=== PATIENT | female | born 1945 | race Caucasian/White ===

== ENCOUNTER 2017-02-19 14:15 | Inpatient (IN) | payer MEDICARE ==
[2017-02-19] MEDS ORDERED: Ondansetron HCl/PF 4 MG/2 ML Vial ONE ×2 (14:58→15:52)
[2017-02-19 15:05] LABS: #Lymphocytes 0.6 thou/uL (1.20-3.40); #Monocytes 0.4 thou/uL (0.11-0.59); #Neutrophils 7.1 thou/uL (1.40-6.50); %Basophils 0.2 % (0.0-1.0); %Eosinophils 0.2 % (0.0-10.0); %Lymphocytes 7.8 % (21.0-51.0); %Monocytes 4.3 % (0.0-10.0); %Neutrophils 87.6 % (42.0-75.0); Hemoglobin 9.2 g/dL (12.0-16.0); Mean Corpuscular HGB CONC 31.4 g/dL (32.0-36.0); Mean Corpuscular Hemoglobin 29.6 pg (27.0-31.0); Mean Platelet Volume 6.9 fL (7.4-10.4); Platelet Count 326 thou/uL (130-400); RBC Distribution Width 13.2 % (11.5-14.5); Red Blood Cell (RBC) Count 3.12 mill/uL (4.20-5.40); White Blood Cell (WBC) Count 8.1 thou/uL (4.8-10.8)
[2017-02-19 15:18] LABS: ALT (SGPT) 16 U/L (8-55); AST (SGOT) 21 U/L (5-34); Albumin 3.8 g/dL (3.4-4.8); Alkaline Phosphatase 104 U/L (40-150); Anion Gap 16 mmol/L (10-20); BUN (Urea Nitrogen) 22 mg/dL (9.8-20.1); Bilirubin, Total 0.2 mg/dL (0.2-1.2); Calc. Creatinine Clearance 0 mL/min (70-130); Calcium 10.2 mg/dL (7.8-10.44); Carbon Dioxide 25 mmol/L (23-31); Chloride 99 mmol/L (98-107); Estimated GFR-MDRD 54; Globulin 4.3 g/dL (2.4-3.5); Glucose 172 mg/dL (83-110); Lipase 248 U/L (8-78); Potassium 3.6 mmol/L (3.5-5.1); Protein, Total 8.1 g/dL (6.0-8.3); Sodium 136 mmol/L (136-145)
[2017-02-19 15:22] LABS: CKMB 1.2 ng/mL (0-6.6); Troponin I 0.121 ng/mL (< 0.028)
--- NOTE | 2017-02-19 15:53 | CT ---
CT OF THE ABDOMEN AND PELVIS 02/19/17 COMPARISON: 03/08/15 HISTORY: Sudden onset nausea and vomiting. TECHNIQUE: Serial axial CT imaging at 5 mm intervals from lung bases through pubic symphysis without contrast. C oronal reformatted imaging obtained. FINDINGS: The lack of contrast media limits assessment of the viscera, bowel, vascular structures and for lymph adenopathy. Patchy areas of reticulonodular density are noted in both lung bases, left greater than right, new wh en compared to the prior exam. No free intraperitoneal air is noted. 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 There are numerous round soft tissue nodules in the right upper quadrant, evid ence of stable splenosis. The liver appears grossly unremarkable as do bilateral adrenal glands. Pancreas is grossly unremarkab le as well. The left kidney contains a few punctate nonobstructing stones, unchanged when compared to the prior e xamination. There are also calcifications in the left renal hilum suggesting vascular calcification. There is no evidence for obstructive uropathy on the left. There is prominent new hydronephrosis and hydroureter on the right. Mid right ureter is dilated to 2. 4 cm. There is a large obstructing stone in the distal right ureter at the axial level of the inferio r margin of the right sacroiliac joint, measuring 1.2 cm in transverse dimension. This was located wi thin the renal pelvis on the 03/08/15 exam. Limited assessment of the bowel demonstrates no evidence for obstruction. There is azygos continuatio n of the IVC, as seen on the prior examination. Prominent stable mid pole anterior right renal cyst. Extensive atherosclerotic calcification of the abdominal aorta and its branches noted, not well aicha cterized on noncontrast enhanced imaging. There is postoperative hardware associated with the proxima l right femur. No acute osseous abnormality is seen. multilevel lumbar spine degenerative changes with multilevel di sc space narrowing and facet hypertrophic change. The obstructing stone within the distal right ureter measures up to 1.4 cm in craniocaudal dimension. IMPRESSION: There is evidence of severe obstructive uropathy on the right secondary to an obstructing stone withi n the right ureter measuring up to 1.4 cm in craniocaudal dimension. Numerous additional stable inci dental findings as detailed above. POS: [facility]
[2017-02-19 16:03] LABS: Bilirubin Negative (Negative); Blood, Urine Small (Negative); Clarity CLEAR (Clear); Glucose, Urine (Dipstick) Negative (Negative); Leukocyte Negative (Negative); Nitrite Negative (Negative); Protein, Urine (Dipstick) 100 mg/dL (Neg-Trace); Specific Gravity, Urine 1.013 (1.002-1.036); Urobilinogen 0.2 mg/dL (0.2-1.0); pH, Urine 7.5 (5.0-9.0)
[2017-02-19 16:05] LABS: Bacteria/HPF None Seen HPF (None Seen); Hyaline Casts/LPF 0-3 HYALINE CAST LPF (0-3 Hyaline); Squamous Epithelial None Seen HPF (0-3); WBC/HPF 0-3 HPF (0-3)
--- NOTE | 2017-02-19 16:24 | RAD ---
FRONTAL RADIOGRAPH CHEST PORTABLE UPRIGHT 02/19/17 COMPARISON: 03/08/15. HISTORY: Short of breath. FINDINGS: There are new hazy patchy areas of increased density within the inferomedial aspect of the left lung base abutting the left hemidiaphragm. There are increased linear interstitial densities with pulmonar y hyperinflation. The osseous structures are demineralized. There are postoperative anchors overlying the humeral head on the right. There is atherosclerotic calcifications in the aortic arch. IMPRESSION: Patchy areas of focal opacity noted in the medial left lung base suggesting infectious pneumonitis or aspiration. POS: [facility]
[2017-02-19] MEDS ORDERED: Mag-Al 1200 mg/1200 mg/30 ML UDCUP PO PRN (17:10)
[2017-02-19] MEDS ORDERED: Pepto Bismol Chew TAB PO PRN (17:10)
[2017-02-19] MEDS ORDERED: Calcium Carbonate 500 MG ChewTAB PO PRN (17:10)
[2017-02-19] MEDS ORDERED: Loperamide HCl 2 MG CAP PO PRN (17:10)
[2017-02-19] MEDS ORDERED: Bisacodyl 5 MG TAB PO PRN (17:10)
[2017-02-19] MEDS ORDERED: HumaLOG 300 UNITS/3 ML VIAL SC PRN (17:15)
[2017-02-19] MEDS ORDERED: Dextrose 5% in Water 1,000 ML IV PRN (17:15)
[2017-02-19] MEDS ORDERED: Dextrose 50% Abboject 50 ML SYRINGE SLOW IVP PRN (17:15)
[2017-02-19 17:36] LABS: Hemoglobin A1c 6.1 % (4.0-6.0)
[2017-02-19 18:03] LABS: Troponin I 0.116 ng/mL (< 0.028)
[2017-02-19] MEDS: Sodium Chloride 0.9% 1,000 ML IV SCH (21:34)
[2017-02-19] MEDS: Famotidine 20 MG TAB PO SCH (21:36)
[2017-02-19] MEDS: Piperacillin/Tazobactam 3.375 GM in Sodium Chloride 0.9% 100 ML IVPB SCH (21:36)
--- NOTE | 2017-02-19 23:26 | HP ---
CHIEF COMPLAINT: Nausea and vomiting since earlier this morning. HISTORY OF PRESENT ILLNESS: This is a 71-year-old female with no significant past medical history wh diana presents to the hospital after nausea and vomiting episode that occurred earlier this morning. The patient states that she took a new p.o. that was prescribed by her doctor, which she says is a "jennifer ry" pill. She states that after taking that particular medication, she felt like her stomach was uns ettling. Shortly thereafter, she began having nausea and vomiting that persisted for a while. She s tates that she pretty much vomited everything that she had in her stomach, to the point where she was dry heaving shortly thereafter. Because of that, she decided to come to the hospital for further ev aluation and management. She denied having any chest pain, shortness of breath, dizziness, chills, f valery, palpitations or any other symptoms. She states that this is approximately her third day of ta jessica this medication. She states that on the past couple of days, she has been having some watery di arrhea with an unsettling stomach, but did not have the vomiting until today. She states that she lopez s not had any diarrhea today. Currently, the patient states that she feels significantly better. Scottie coronado denies any nausea, vomiting or diarrhea at this time. She also denies any fevers or chills or dizz iness. While in the ER, the patient was found to have a troponin of indeterminate range for a tropon in of 0.121 with nonspecific findings on the EKG. PAST MEDICAL HISTORY: Includes hyperlipidemia and diabetes, although she states she was told that scottie coronado no longer has it. PAST SURGICAL HISTORY: None. FAMILY HISTORY: She does not know as she states that she is adopted. SOCIAL HISTORY: The patient denies any tobacco or recreational drug use or alcoholic use. REVIEW OF SYSTEMS: A 14-point review of systems were reviewed and were negative other than what was mentioned in the HPI. HOME MEDICATIONS: Still trying to be retrieved at this time. PHYSICAL EXAMINATION: VITAL SIGNS: Blood pressure is 168/80, pulse was 74, respiratory rate was 18, temperature was 98.7. The patient is satting 97% oxygen on room air. GENERAL: The patient was in no apparent distress, resting comfortably in the bed. Alert, awake and oriented x3. HEAD: Normocephalic and atraumatic. EYES: Pupils are round and reactive to light. Extraocular muscles were intact. Conjunctivae were p ink. Sclerae were nonicteric. MOUTH: Oral mucosa is pink and moist. No erythematous was noted. NECK: Soft and supple. No JVD, carotid bruits or lymphadenopathy. CARDIOVASCULAR: Regular rate and rhythm. S1 and S2 sounds were heard. No S3, no S4, or murmurs. RESPIRATORY: Clear to auscultation bilaterally. No added sounds. ABDOMEN: Bowel sounds, soft, nontender and nondistended. EXTREMITIES: Pulses were 2+, both dorsalis and radial pulse. No pitting edema could be appreciated. LABORATORY DATA: White blood cell count was 8.1, hemoglobin was 9.2, hematocrit was 29.4 and platele t count was 226. Sodium was 136, potassium 3.6, chloride was 99, bicarbonate was 25, BUN was 22, cre atinine was 0.01, glucose is 172 and troponin was 0.121. The patient also had a lipase of 248. Urin alysis was practically negative for any acute abnormalities that could be explaining her current symp toms. IMAGING DATA: Chest x-ray showed patchy areas of focal opacity noted in the medial left lung base de guzman ggestive of an infectious pneumonitis or aspiration. CT scan of the abdomen showed evidence of sever e obstructive uropathy on the right secondary to obstructive stone with right ureter measuring up to 1.4 cm in dimension. ASSESSMENT AND PLAN: 1. Nausea and vomiting, likely secondary iatrogenic secondary to medication use. The patient feels significantly better. She is currently hemodynamically stable. We will continue to treat her sympto matically if symptoms do reoccur with Zofran. We will also start the patient on IV fluids. 2. Elevated troponins, likely secondary to above. I do not believe this is cardiac in nature. I do not believe this is cardiac in nature; however, we will check 2 more sets of troponins to rule out a s it being cardiac in nature. Again, I do not believe this is cardiac at this time. 3. Aspiration/pneumonitis due to persistent nausea and vomiting from earlier today. The patient cur rently is hemodynamically stable and is satting well on room air. Due to the significance of her vom iting and findings on her chest x-ray, I will place her on IV antibiotics for the time being to make sure that this does not turn into a significant pneumonia in the near future. 4. Elevated lipase, likely secondary to the retching and vomiting that she has. She currently has n o abdominal pain and is asymptomatic on exam. Therefore, true pancreatitis is unlikely at this time. 5. Questionable diabetes. Apparently, was on metformin, but this was stopped by her primary care ph ysician. Glucose is 172 at this time. We will check a hemoglobin A1c. I will place the patient on diabetic diet just in case the patient still does have diabetes. 6. Hyperlipidemia. Resume home medications. 7. Deep venous thrombosis prophylaxis. We will place sequential compression devices as well as star t the patient on Lovenox daily.
[2017-02-20] MEDS: Piperacillin/Tazobactam 3.375 GM in Sodium Chloride 0.9% 100 ML IVPB SCH ×4 (02:07→21:24)
[2017-02-20] MEDS: Sodium Chloride 0.9% 1,000 ML IV SCH ×3 (02:12→21:30)
[2017-02-20 05:18] LABS: #Monocytes 0.7 thou/uL (0.11-0.59); #Neutrophils 5.8 thou/uL (1.40-6.50); %Basophils 0.3 % (0.0-1.0); %Eosinophils 0.6 % (0.0-10.0); %Lymphocytes 13.3 % (21.0-51.0); %Monocytes 9.8 % (0.0-10.0); Hemoglobin 8.4 g/dL (12.0-16.0); Mean Corpuscular HGB CONC 31.5 g/dL (32.0-36.0); Mean Corpuscular Hemoglobin 29.7 pg (27.0-31.0); Mean Corpuscular Volume 94.2 fl (81.0-99.0); Mean Platelet Volume 6.8 fL (7.4-10.4); Platelet Count 279 thou/uL (130-400); RBC Distribution Width 13.2 % (11.5-14.5); Red Blood Cell (RBC) Count 2.82 mill/uL (4.20-5.40); White Blood Cell (WBC) Count 7.6 thou/uL (4.8-10.8)
[2017-02-20 05:42] LABS: ALT (SGPT) 18 U/L (8-55); AST (SGOT) 25 U/L (5-34); Albumin 3.4 g/dL (3.4-4.8); Alkaline Phosphatase 94 U/L (40-150); Anion Gap 13 mmol/L (10-20); BUN (Urea Nitrogen) 18 mg/dL (9.8-20.1); Bilirubin, Total 0.2 mg/dL (0.2-1.2); Calc. Creatinine Clearance 41 mL/min (70-130); Calcium 9.3 mg/dL (7.8-10.44); Carbon Dioxide 25 mmol/L (23-31); Chloride 106 mmol/L (98-107); Estimated GFR-MDRD 58; Globulin 3.4 g/dL (2.4-3.5); Glucose 93 mg/dL (83-110); Potassium 3.5 mmol/L (3.5-5.1); Protein, Total 6.8 g/dL (6.0-8.3); Sodium 140 mmol/L (136-145)
[2017-02-20] MEDS: Enoxaparin Sodium 40 MG/0.4 ML SYRINGE SC SCH (09:02)
[2017-02-20] MEDS: Famotidine 20 MG TAB PO SCH ×2 (09:02→21:24)
[2017-02-20] MEDS ORDERED: Promethazine HCl 25 MG SUPP PR PRN (09:42)
[2017-02-20] MEDS ORDERED: hydrALAZINE 20 MG/ML VIAL SLOW IVP PRN (09:42)
[2017-02-20] MEDS ORDERED: Temazepam 15 MG CAP PO PRN (09:42)
[2017-02-20] MEDS ORDERED: Ondansetron HCl/PF 4 MG/2 ML Vial IVP PRN (09:42)
--- NOTE | 2017-02-20 09:50 | PDOC.PN ---
- Subjective Encounter Start Date: 02/20/17 Encounter Start Time: 09:48 Patient seen and examined. No new complaints. No overnight events - Objective Resuscitation Status: Resuscitation Status FULL:Full Resuscitation MAR Reviewed: Yes Vital Signs & Weight: Vital Signs (12 hours) Temp Pulse Resp BP Pulse Ox 02/20/17 04:20 93 L 02/20/17 03:57 98.2 F 71 18 122/59 L 93 L 02/20/17 00:16 93 L 02/20/17 00:00 98.1 F 73 18 131/60 93 L Weight Weight 107 lb 9.6 oz I&O: 02/19/17 02/20/17 02/21/17 06:59 06:59 06:59 Intake Total 1027 Output Total 850 Balance 177 Result Diagrams: 02/20/17 05:01 02/20/17 05:01 Additional Labs: Accuchecks 02/20/17 02/19/17 06:06 20:48 POC Glucose 93 127 H Phys Exam - Physical Examination Constitutional: NAD HEENT: PERRLA Neck: no JVD Respiratory: no wheezing Cardiovascular: no significant murmur Gastrointestinal: non-tender Musculoskeletal: pulses present Neurological: moves all 4 limbs Psychiatric: A&O x 3 Dx/Plan (1) Nausea & vomiting Code(s): R11.2 - NAUSEA WITH VOMITING, UNSPECIFIED Status: Acute (2) Aspiration pneumonitis Code(s): J69.0 - PNEUMONITIS DUE TO INHALATION OF FOOD AND VOMIT Status: Acute (3) DM type 2 (diabetes mellitus, type 2) Status: Chronic (4) Depression Code(s): F32.9 - MAJOR DEPRESSIVE DISORDER, SINGLE EPISODE, UNSPECIFIED Status : Chronic (5) HLD (hyperlipidemia) Code(s): E78.5 - HYPERLIPIDEMIA, UNSPECIFIED Status: Chronic (6) Renal calculi Status: Chronic (7) Elevated troponin Code(s): R74.8 - ABNORMAL LEVELS OF OTHER SERUM ENZYMES Status: Acute - Plan * feels better * continue current rx * f/u urology plan * f/u lipase * f/u card plan
[2017-02-20 13:47] VITALS: BMI 16.3
--- NOTE | 2017-02-20 14:24 | CON ---
UROLOGY CONSULTATION NOTE DATE OF CONSULTATION: 02/20/2017 HISTORY OF PRESENT ILLNESS: This is a 71-year-old white female whom I was asked to see today because of a large right distal ureteral stone with right hydronephrosis. She was admitted to the hospital yesterday. She came in with nausea and vomiting, which she related to starting a new medicine that w as probably for perhaps early Alzheimer disease that her family doctor in [place] has started on, alth ough she was also started on a diuretic around the same time. She took both of those medicines on and did not feel well and then took just a pill for assuming Alzheimer's yesterday and as when the vomiting started and she came in. She seems to be doing better now, although she is on medicati ons for nausea currently. She has a fairly long history of kidney stones. She lived in [facility] in the past and she can remember having stones there and taking medicine for them and passing them. She is not sure what the stones were made of. Looking through the records here at the hospital, in 2013, she had a 5 mm distal stone on the right as well as a 1 cm right renal pelvic stone in the ER a nd she had been referred to Dr. Khari Lopez. She does not believe she saw a urologist at that time, but does remember passing that stone. She had a CAT scan done a couple years ago that showed bilater al renal stones with a very large one in the right renal pelvis and then she [facility] this visit when she came in that shows that she has a 1.5 cm stone that had been in the renal pelv is on prior scans that is now in the lower third of the right ureter with a very prominent and hydron ephrotic right ureter. The renal cortex seems to be well maintained. She appears to have a large cy st coming off of the right kidney. Also, she had some stones in the left side. She also of note has situs inversus. She has had gross hematuria with stones in the past, but she has had no gross hemat uria recently. No fevers or chills. No right flank pain or abdominal pain at all and no blood in urine or dysuria. PAST SURGICAL HISTORY: Includes a hysterectomy for benign disease, a cholecystectomy and appendectom y, bilateral elbow surgery, femur fracture and some procedures done on her toe. To her knowledge, scottie coronado has never had a joint replacement. PAST MEDICAL HISTORY: She does have a history possibly of diabetes, although recently her family doc tor told she does not have diabetes and took her off of the medications for that. She has had a hist ory of some hyperlipidemia. She has had some history of lower extremity edema and she did start taki ng a fluid pill for that. She does not have any significant edema now. She does have some problems with the memory, even though she has a diagnosis of Alzheimer's. Now, she also has a long history of anemia. She said as a child, she was anemic and throughout her life, she has been anemic and she st ill is anemic and it is uncertain what that is caused from and most recently over the last few months she has had decreasing appetite and she has lost probably 20-30 pounds because of this. She also lopez s a history of COPD. She does not smoke anymore. SOCIAL HISTORY: Does not smoke at this time. She does not drink alcohol at this time. I believe scottie coronado lives by herself. PHYSICAL EXAMINATION: ABDOMEN: She has no flank tenderness. Abdomen is soft, flat and nontender, without mass. GENITOURINARY: No inguinal adenopathy, no abnormality. External genitalia. IMPRESSION AND PLAN: A large right distal ureteral stone with hydronephrosis. This has probably bee n there for a while. Based on the amount of hydronephrosis, thankfully, she is pain free and has nor mal creatinine and basically normal urinalysis. I think she does need to have this treated. I doubt very much that she will pass it. My guess has been there for a while and they do not think a trial with trying to pass, it is much sense. We could look at treating her with shockwave lithotripsy and stent placement this Wednesday when the unit is in town and I think this will be an ideal time to do it as long as she can stay off blood thinners between now and then. I am going to write on her chart that if it is okay with her Hospitalist that any for cardiac workup, which I think is being done at this time is adequate, then we could look at keeping her off her aspirin and doing this Wednesday. I f not, we probably do it a week from Wednesday. I did tell her based on the size of the stone that i t may very well require more than 1 treatment, which possibly consistent of ESWL and stent followed b y another ESWL procedure, perhaps ESWL and a stent followed by ureteroscopic procedure. In any event , I did tell her that currently her kidney appears to be well maintained, which is a good finding. I will follow along with you.
--- NOTE | 2017-02-20 15:12 | RAD ---
ABDOMEN 1 VIEW: Date: 02/20/17 HISTORY: 71-year-old female with history of right ureteral stone. COMPARISON: 02/19/17 CT. FINDINGS: There is a large, 1.1 x 1.5 cm diameter right ureteral calculus in the same position as on the prior CT scan. There is noted to be a left-sided liver and a right-sided stomach consistent with abdominal visceral situs inversus. IMPRESSION: Large right ureteral calculus distally, stable. Evidence for right-sided stomach and left-sided liver . POS: [facility]
[2017-02-21] MEDS: Piperacillin/Tazobactam 3.375 GM in Sodium Chloride 0.9% 100 ML IVPB SCH ×4 (02:30→20:46)
[2017-02-21] MEDS: Acetaminophen 325 MG TAB PO PRN ×2 (04:48→17:21)
[2017-02-21] MEDS ORDERED: Ketorolac Tromethamine 30 MG/ML VIAL IVP SCH (05:00)
[2017-02-21 05:30] LABS: Albumin 3.4 g/dL (3.4-4.8); Anion Gap 11 mmol/L (10-20); BUN (Urea Nitrogen) 17 mg/dL (9.8-20.1); BUN/Creatinine Ratio 15.18; Calc. Creatinine Clearance 34 mL/min (70-130); Calcium 9.2 mg/dL (7.8-10.44); Carbon Dioxide 26 mmol/L (23-31); Chloride 107 mmol/L (98-107); Estimated GFR-MDRD 48; Glucose 100 mg/dL (83-110); Lipase 36 U/L (8-78); Phosphorus 2.7 mg/dL (2.3-4.7); Potassium 3.5 mmol/L (3.5-5.1); Sodium 140 mmol/L (136-145)
[2017-02-21 05:49] LABS: Band 1 % (5-11); Eosinophils 1 % (0-10); Hemoglobin 8.3 g/dL (12.0-16.0); Hypochromia SLIGHT = 6-15 cells (100X) (0-5/hpf); Lymphocytes 8 % (21-51); MDiff Complete? YES; Mean Corpuscular HGB CONC 31.2 g/dL (32.0-36.0); Mean Corpuscular Hemoglobin 29.5 pg (27.0-31.0); Mean Corpuscular Volume 94.5 fl (81.0-99.0); Metamyelocyte 1 % (0-0); Monocytes 6 % (0-10); Neutrophil 83 % (42-75); PLT Morphology Comment Appears Adequate; Platelet Count 274 thou/uL (130-400); RBC Distribution Width 13.4 % (11.5-14.5); White Blood Cell (WBC) Count 9.5 thou/uL (4.8-10.8)
[2017-02-21] MEDS: Famotidine 20 MG TAB PO SCH ×2 (08:14→20:47)
[2017-02-21] MEDS: Enoxaparin Sodium 40 MG/0.4 ML SYRINGE SC SCH ×2 (08:14→08:21)
[2017-02-21] MEDS: Sodium Chloride 0.9% 1,000 ML IV SCH ×2 (08:15→20:47)
--- NOTE | 2017-02-21 11:57 | RAD ---
2 VIEWS CHEST: Date: 02/21/17 COMPARISON: 02/19/17. HISTORY: Shortness of breath. FINDINGS: Diffuse increased linear interstitial densities are noted with pulmonary hyperinflation. There is asy mmetric linear density in the medial left lung base, slightly improved when compared to 02/19/17, whi ch may signify improving infectious pneumonitis. Lungs are hyperinflated, consistent with air trappin g. IMPRESSION: Diffuse interstitial prominence with pulmonary hyperinflation, which may signify findings consistent with COPD. Streaky opacity in the medial left lung base suggests superimposed infectious pneumonitis, improving. Continued follow-up to full resolution advised. POS: [facility]
--- NOTE | 2017-02-21 12:28 | PDOC.PN ---
- Subjective Encounter Start Date: 02/21/17 Encounter Start Time: 12:22 Patient seen and examined. No new complaints. No overnight events - Objective Resuscitation Status: Resuscitation Status FULL:Full Resuscitation MAR Reviewed: Yes Vital Signs & Weight: Vital Signs (12 hours) Temp Pulse Resp BP Pulse Ox 02/21/17 12:00 99.2 F 75 14 121/55 L 93 L 02/21/17 10:28 98.8 F 70 16 126/65 94 L 02/21/17 08:10 98.8 F 70 16 94 L 02/21/17 04:48 93 L 02/21/17 04:00 98.9 F 73 18 156/72 H 93 L Weight Admit Weight 107 lb Weight 108 lb 14.4 oz I&O: 02/20/17 02/21/17 02/22/17 06:59 06:59 06:59 Intake Total 1027 2000 Output Total 850 2650 Balance 177 -650 Result Diagrams: 02/21/17 04:43 02/21/17 04:43 Additional Labs: Accuchecks 02/21/17 02/21/17 02/20/17 11:08 06:07 21:11 POC Glucose 142 H 91 119 H 02/20/17 17:00 POC Glucose 143 H Phys Exam - Physical Examination Constitutional: NAD HEENT: PERRLA Neck: no JVD Respiratory: no wheezing Cardiovascular: no significant murmur Gastrointestinal: non-tender Musculoskeletal: pulses present Neurological: normal sensation Psychiatric: A&O x 3 Dx/Plan (1) Nausea & vomiting Code(s): R11.2 - NAUSEA WITH VOMITING, UNSPECIFIED Status: Acute (2) Aspiration pneumonitis Code(s): J69.0 - PNEUMONITIS DUE TO INHALATION OF FOOD AND VOMIT Status: Acute (3) DM type 2 (diabetes mellitus, type 2) Status: Chronic (4) Depression Code(s): F32.9 - MAJOR DEPRESSIVE DISORDER, SINGLE EPISODE, UNSPECIFIED Status : Chronic (5) HLD (hyperlipidemia) Code(s): E78.5 - HYPERLIPIDEMIA, UNSPECIFIED Status: Chronic (6) Renal calculi Status: Chronic (7) Elevated troponin Code(s): R74.8 - ABNORMAL LEVELS OF OTHER SERUM ENZYMES Status: Acute - Plan * awaiting card plan * f/u urology plan * continue current mx
--- NOTE | 2017-02-21 15:26 | CON ---
DATE OF CONSULTATION: 02/21/2017 REASON FOR CONSULTATION: Elevated troponin. HISTORY OF PRESENT ILLNESS: Ms. Varela is a 71-year-old woman with no previous cardiac history wh o recently was admitted for persistent nausea, vomiting. She is very vague in her history. She tg es flank pain. She was diagnosed with pyelonephritis. No chest pain or pressure noted. Her troponi n was in the indeterminate range. PAST MEDICAL HISTORY: Nephrolithiasis, hysterectomy, elbow surgery, cholecystectomy, mild Alzheimer' s dementia, and diabetes mellitus. SOCIAL HISTORY: No current tobacco or alcohol use. HOME MEDICATIONS: Zocor, trazodone, Lasix, and pioglitazone. REVIEW OF SYSTEMS: Ten-point review of systems is reviewed and as above, otherwise negative. PHYSICAL EXAMINATION: GENERAL: Patient is a pleasant female who is in no acute distress. The patient appears her stated a ge. VITAL SIGNS: Blood pressure 120/55, pulse 75, temperature 99.2. NEUROLOGIC: The patient is alert and oriented times 3 with no focal neurologic deficits. HEENT: Sclerae without icterus. Mouth has moist mucous membranes with normal pallor. NECK: No JVD. Carotid upstroke brisk. No bruits bilaterally. LUNGS: Clear to auscultation with unlabored respirations. BACK: No scoliosis or kyphosis. CARDIAC: Regular rate and rhythm with normal S1 and S2. No S3 or S4 noted. No significant rubs, mu rmurs, thrills, or gallops noted throughout the precordium. PMI is not displaced. There is no pasha ternal heave. ABDOMEN: Soft, nontender, nondistended. No peritoneal signs present. No hepatosplenomegaly. No ab normal striae. EXTREMITIES: 2+ femoral and 2+ dorsalis pedis pulses. No cyanosis, clubbing, or edema. SKIN: No gross abnormalities. PERTINENT LABORATORY DATA: Hemoglobin 8.3, creatinine 1.12 with a GFR of 48. Peak troponin 0.110. IMPRESSION: 1. Elevated troponin. 2. Nausea, vomiting. 3. Pyelonephritis. RECOMMENDATIONS: Ms. Varela's symptoms are not felt to be consistent with unstable angina. This is likely demand ischemia. Her hemoglobin has decreased. She also has had persistent nausea and vom iting, likely from pyelonephritis. At this point, I recommend conservative therapy. We will add bet a melani therapy to her statin treatment. She is not currently having symptoms of angina. I would not recommend nitrates.
[2017-02-21 19:44] LABS: Bilirubin Negative (Negative); Blood, Urine Small (Negative); Clarity CLEAR (Clear); Glucose, Urine (Dipstick) Negative (Negative); Leukocyte Small (Negative); Nitrite Negative (Negative); Protein, Urine (Dipstick) 30 mg/dL (Neg-Trace); Specific Gravity, Urine 1.028 (1.002-1.036); Urobilinogen 0.2 mg/dL (0.2-1.0)
[2017-02-21 19:46] LABS: Bacteria/HPF None Seen HPF (None Seen); Hyaline Casts/LPF 0-3 HYALINE CAST LPF (0-3 Hyaline); Pathc Cast-AUWi Flag 0.27 (0-2.49); Squamous Epithelial 0-3 HPF (0-3)
[2017-02-21] MEDS: Carvedilol 3.125 MG TAB PO SCH (20:47)
[2017-02-22] MEDS: Piperacillin/Tazobactam 3.375 GM in Sodium Chloride 0.9% 100 ML IVPB SCH ×4 (02:28→20:38)
[2017-02-22 05:03] LABS: Albumin 3.4 g/dL (3.4-4.8); Anion Gap 14 mmol/L (10-20); BUN (Urea Nitrogen) 18 mg/dL (9.8-20.1); BUN/Creatinine Ratio 16.07; Calc. Creatinine Clearance 35 mL/min (70-130); Carbon Dioxide 22 mmol/L (23-31); Chloride 109 mmol/L (98-107); Estimated GFR-MDRD 48; Glucose 99 mg/dL (83-110); Phosphorus 2.7 mg/dL (2.3-4.7); Potassium 3.7 mmol/L (3.5-5.1); Sodium 141 mmol/L (136-145)
[2017-02-22] MEDS: Sodium Chloride 0.9% 1,000 ML IV SCH ×2 (06:11→08:10)
[2017-02-22] MEDS: Acetaminophen 325 MG TAB PO PRN (08:10)
[2017-02-22] MEDS: Carvedilol 3.125 MG TAB PO SCH ×2 (08:10→20:38)
[2017-02-22] MEDS: Famotidine 20 MG TAB PO SCH ×2 (08:10→20:38)
--- NOTE | 2017-02-22 09:07 | PRG ---
DATE OF SERVICE: 02/22/2017 SUBJECTIVE: The patient is doing well, no current complaints except for lack of sleep, although she states she is sleepy. No chest pain or pressure. Nausea and vomiting have improved. PHYSICAL EXAMINATION: VITAL SIGNS: Blood pressure 167/74, pulse 70, temperature 99.1. LUNGS: Clear to auscultation. HEART: Regular rate and rhythm. ABDOMEN: Soft, nontender, nondistended. EXTREMITIES: No edema. IMPRESSION: 1. Elevated troponin. 2. Nausea and vomiting. RECOMMENDATIONS: Recommend echo with Doppler to assess LV function. If her LVEF is normal, would th en recommend continued conservative therapy. Her symptoms do not seem to be consistent with unstable angina. She also has a fever of 102.9, which is likely the culprit. She is currently on carvedilol . We will add statin therapy.
[2017-02-22 11:44] LABS: #Basophils 0.1 thou/uL (0.0-0.2); #Eosinphils 0.1 thou/uL (0.0-0.7); #Lymphocytes 1.2 thou/uL (1.20-3.40); #Monocytes 0.7 thou/uL (0.11-0.59); #Neutrophils 7.4 thou/uL (1.40-6.50); %Basophils 0.6 % (0.0-1.0); %Eosinophils 0.8 % (0.0-10.0); %Lymphocytes 12.4 % (21.0-51.0); %Monocytes 7.7 % (0.0-10.0); %Neutrophils 78.5 % (42.0-75.0); Hemoglobin 8.5 g/dL (12.0-16.0); Mean Corpuscular HGB CONC 30.7 g/dL (32.0-36.0); Mean Corpuscular Volume 94.4 fl (81.0-99.0); Mean Platelet Volume 6.7 fL (7.4-10.4); Platelet Count 283 thou/uL (130-400); RBC Distribution Width 13.3 % (11.5-14.5); Red Blood Cell (RBC) Count 2.92 mill/uL (4.20-5.40); White Blood Cell (WBC) Count 9.4 thou/uL (4.8-10.8)
[2017-02-22 16:44] LABS: Bilirubin Negative (Negative); Blood, Urine Trace (Negative); Clarity CLEAR (Clear); Glucose, Urine (Dipstick) Negative (Negative); Leukocyte Negative (Negative); Nitrite Negative (Negative); Protein, Urine (Dipstick) 30 mg/dL (Neg-Trace); Specific Gravity, Urine 1.024 (1.002-1.036); Urobilinogen 0.2 mg/dL (0.2-1.0)
[2017-02-22 16:46] LABS: Bacteria/HPF None Seen HPF (None Seen); Hyaline Casts/LPF 0-3 HYALINE CAST LPF (0-3 Hyaline); Pathc Cast-AUWi Flag 0.13 (0-2.49); Squamous Epithelial 0-3 HPF (0-3)
--- NOTE | 2017-02-22 17:32 | PDOC.PN ---
- Subjective Encounter Start Date: 02/22/17 Encounter Start Time: 17:31 Patient seen and examined. No new complaints. No overnight events - Objective Resuscitation Status: Resuscitation Status FULL:Full Resuscitation MAR Reviewed: Yes Vital Signs & Weight: Vital Signs (12 hours) Temp Pulse Resp BP BP Pulse Ox 02/22/17 14:56 97.6 F 72 18 159/75 H 97 02/22/17 10:38 98.4 F 68 18 137/67 96 02/22/17 08:05 99.1 F 75 18 167/74 H 96 Weight Admit Weight 107 lb Weight 112 lb 14.4 oz I&O: 02/21/17 02/22/17 02/23/17 06:59 06:59 06:59 Intake Total 1999 3100 Output Total 2650 2700 Balance -650 400 Result Diagrams: 02/22/17 11:34 02/22/17 04:22 Additional Labs: Accuchecks 02/22/17 02/22/17 02/22/17 16:15 10:38 06:24 POC Glucose 112 H 161 H 113 H 02/21/17 20:02 POC Glucose 147 H Phys Exam - Physical Examination Constitutional: NAD HEENT: PERRLA Neck: no JVD Respiratory: no wheezing Cardiovascular: no significant murmur Gastrointestinal: non-tender Musculoskeletal: pulses present Neurological: moves all 4 limbs Dx/Plan (1) Nausea & vomiting Code(s): R11.2 - NAUSEA WITH VOMITING, UNSPECIFIED Status: Acute (2) Aspiration pneumonitis Code(s): J69.0 - PNEUMONITIS DUE TO INHALATION OF FOOD AND VOMIT Status: Acute (3) DM type 2 (diabetes mellitus, type 2) Status: Chronic (4) Depression Code(s): F32.9 - MAJOR DEPRESSIVE DISORDER, SINGLE EPISODE, UNSPECIFIED Status : Chronic (5) HLD (hyperlipidemia) Code(s): E78.5 - HYPERLIPIDEMIA, UNSPECIFIED Status: Chronic (6) Renal calculi Status: Chronic (7) Elevated troponin Code(s): R74.8 - ABNORMAL LEVELS OF OTHER SERUM ENZYMES Status: Acute - Plan * continue current plan * urology input appreiciated * f/u culture results * f/u card rec's
[2017-02-22] MEDS ORDERED: Atorvastatin Calcium 40 MG TAB PO SCH (21:00)
[2017-02-23] MEDS: Piperacillin/Tazobactam 3.375 GM in Sodium Chloride 0.9% 100 ML IVPB SCH ×3 (02:05→14:57)
[2017-02-23 05:21] LABS: #Basophils 0.1 thou/uL (0.0-0.2); #Eosinphils 0.1 thou/uL (0.0-0.7); #Lymphocytes 1.1 thou/uL (1.20-3.40); #Monocytes 0.9 thou/uL (0.11-0.59); %Basophils 0.8 % (0.0-1.0); %Eosinophils 1.1 % (0.0-10.0); %Lymphocytes 12.1 % (21.0-51.0); %Monocytes 9.3 % (0.0-10.0); %Neutrophils 76.6 % (42.0-75.0); Hemoglobin 8.6 g/dL (12.0-16.0); Mean Corpuscular HGB CONC 32.5 g/dL (32.0-36.0); Mean Corpuscular Hemoglobin 30.4 pg (27.0-31.0); Mean Corpuscular Volume 93.5 fl (81.0-99.0); Platelet Count 276 thou/uL (130-400); RBC Distribution Width 13.4 % (11.5-14.5); Red Blood Cell (RBC) Count 2.84 mill/uL (4.20-5.40); White Blood Cell (WBC) Count 9.1 thou/uL (4.8-10.8)
[2017-02-23 05:41] LABS: Albumin 3.5 g/dL (3.4-4.8); Anion Gap 13 mmol/L (10-20); BUN (Urea Nitrogen) 16 mg/dL (9.8-20.1); BUN/Creatinine Ratio 13.01; Calc. Creatinine Clearance 33 mL/min (70-130); Calcium 9.2 mg/dL (7.8-10.44); Carbon Dioxide 23 mmol/L (23-31); Chloride 107 mmol/L (98-107); Estimated GFR-MDRD 43; Glucose 96 mg/dL (83-110); Phosphorus 2.7 mg/dL (2.3-4.7); Potassium 3.5 mmol/L (3.5-5.1); Sodium 139 mmol/L (136-145)
[2017-02-23] MEDS: Famotidine 20 MG TAB PO SCH (09:06)
[2017-02-23] MEDS: Carvedilol 3.125 MG TAB PO SCH (09:06)
[2017-02-23 11:56] VITALS: BP 145/67; TEMP 98.4
--- NOTE | 2017-02-23 11:59 | PDOC.PN ---
- Subjective Encounter Start Date: 02/23/17 Encounter Start Time: 11:58 Patient seen and examined. No new complaints. No overnight events - Objective Resuscitation Status: Resuscitation Status FULL:Full Resuscitation MAR Reviewed: Yes Vital Signs & Weight: Vital Signs (12 hours) Temp Pulse Resp BP BP Pulse Ox 02/23/17 11:53 98.4 F 86 16 145/67 H 94 L 02/23/17 08:45 98.8 F 95 18 145/65 H 95 02/23/17 08:41 98.8 F 95 18 02/23/17 04:00 98.7 F 72 18 153/67 H 97 02/23/17 00:00 98.5 F 75 16 160/77 H 94 L Weight Admit Weight 107 lb Weight 114 lb 6.4 oz I&O: 02/22/17 02/23/17 02/24/17 06:59 06:59 06:59 Intake Total 3100 840 Output Total 2700 700 Balance 400 140 Result Diagrams: 02/23/17 04:43 02/23/17 04:43 Additional Labs: Accuchecks 02/23/17 02/23/17 02/22/17 11:13 05:54 20:25 POC Glucose 103 98 106 02/22/17 16:15 POC Glucose 112 H Phys Exam - Physical Examination Constitutional: NAD HEENT: PERRLA Neck: no JVD Respiratory: no wheezing Cardiovascular: no significant murmur Gastrointestinal: non-tender Musculoskeletal: pulses present Neurological: moves all 4 limbs Psychiatric: A&O x 3 Dx/Plan (1) Nausea & vomiting Code(s): R11.2 - NAUSEA WITH VOMITING, UNSPECIFIED Status: Acute (2) Aspiration pneumonitis Code(s): J69.0 - PNEUMONITIS DUE TO INHALATION OF FOOD AND VOMIT Status: Acute (3) DM type 2 (diabetes mellitus, type 2) Status: Chronic (4) Depression Code(s): F32.9 - MAJOR DEPRESSIVE DISORDER, SINGLE EPISODE, UNSPECIFIED Status : Chronic (5) HLD (hyperlipidemia) Code(s): E78.5 - HYPERLIPIDEMIA, UNSPECIFIED Status: Chronic (6) Renal calculi Status: Chronic (7) Elevated troponin Code(s): R74.8 - ABNORMAL LEVELS OF OTHER SERUM ENZYMES Status: Acute - Plan * doing well * refused echo * ok with card and urology for d/c * out pt f/u with urology for rx of stone
--- NOTE | 2017-02-23 12:10 | CON ---
DATE OF SERVICE: 02/23/2017 SUBJECTIVE: Ms. Varela is doing well. No chest pain or pressure noted. She would like to go alejandro e. She has refused all treatments including echo with Doppler to assess LV function. PHYSICAL EXAMINATION: VITAL SIGNS: Blood pressure 145/67, pulse 86, temperature 98. LUNGS: Clear to auscultation. HEART: Regular rate and rhythm. ABDOMEN: Soft, nontender, nondistended. EXTREMITIES: No edema. IMPRESSION: 1. Elevated troponin. 2. Nausea, vomiting. RECOMMENDATIONS: Ms. Varela would like to go home. She has refused all further studies. It woul d be okay from my standpoint to discharge home with outpatient followup.
--- NOTE | 2017-02-23 14:51 | PQF ---
CLINICAL DOCUMENTATION IMPROVEMENT CLARIFICATION FORM: ICD-10 Updated PLEASE DO AN ADDENDUM TO THE PROGRESS NOTE WITH ANY DOCUMENTATION UPDATES OR ADDITIONS AND CARRY THROUGH TO DC SUMMARY. THANK YOU. Date: 02/23/17 ATTN: Dr. Vega Please exercise your independent, professional judgment in responding to the clarification form. 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 RISKS: H&P: N/V LIKELY SECONDARY IATROGENIC 2/2 MEDICATION USE. ASPIRATION/ PNEUMONITIS D/T PERSISTENT NAUSEA & VOMITING EARLIER TODAY. QUESTIONABLE DIABETES. 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 Thank you, Ilda (This form is maintained as a part of the permanent medical record) 2015 [employer]. All Rights Reserved Ilda Cornejo RN, BSN [email or web address] Office: [phone] [facility]
--- NOTE | 2017-02-23 23:13 | DIS ---
DATE OF ADMISSION: 02/19/2017 DATE OF DISCHARGE: 02/23/2017 DISCHARGE DIAGNOSES: Right ureteral stone and outpatient follow up with Dr. Figueroa. Nausea, vomitin g, and abdominal pain resolved, elevated troponins, mostly secondary to demand ischemia. Patient ref used echocardiogram. Aspiration pneumonitis better. Elevated lipase, resolved. Hyperlipidemia, sta ble. Hypertension. DISCHARGE MEDICATIONS: Include Coreg 3.125 p.o. b.i.d. Continuation of all other home medications a nd Zofran 4 mg . FEATHER SEPARATOR ON THE CASE: Cardiology. BRIEF HOSPITAL COURSE: A 71-year-old pleasant lady came into the hospital with nausea, vomiting, abd ominal pain. CT scan showed ureteral stone. She also had elevated troponin and Urology was consulte d. They recommended lithotripsy. The patient deferred to have it an outpatient and Urology cleared her for discharge. She had slight fever for which urine culture and blood cultures were done which w ere all negative. She was also empirically treated with IV antibiotics for the elevated troponin. C ardiology was consulted. They thought it was secondary to demand ischemia; however, we wanted to ris k stratify the patient and wanted to do echo. The patient refused the echo. Dr. Reilly is okay w ith discharge. She is right now medically stable to be discharged back to the assisted facility and is asked to come back to the emergency room in case symptoms recur. She is asked to follow up with Maddi GRIFFIN in [address] Figueroa to have the stone removed. She is medically stable to be discharged. Total time for this discharge took 35 minutes.
== END 2017-02-23 16:12 | disposition home or self-care (01) | DRG 178 ==
LOC: ERS 14:15 → 2NO 17:00
PROVIDERS: ADMIT Internal Medicine; ATTEND Internal Medicine
DX: J69.0 Pneumonitis due to inhalation of food and vomit (principal); I24.8 Other forms of acute ischemic heart disease; E44.0 Moderate protein-calorie malnutrition; N13.2 Hydronephrosis with renal and ureteral calculous obstruction; Z68.1 Body mass index [BMI] 19.9 or less, adult; R11.2 Nausea with vomiting, unspecified; E11.9 Type 2 diabetes mellitus without complications; E78.5 Hyperlipidemia, unspecified; T50.995A Adverse effect of other drugs, medicaments and biological substances, initial encounter; I10 Essential (primary) hypertension; F32.9 Major depressive disorder, single episode, unspecified
CPT/HCPCS: 36415; 36416; 71045; 71046; 74018; 74176; 80053; 80069; 81001; 81003; 81015; 82553; 83036; 83690; 84484; 85025; 87040; 87086; 93005; 94760; 96361; 96374; 96376; A4216; J0360; J1650; J1885; J2405; J2543; J7050

== ENCOUNTER 2017-04-23 10:52 | Outpatient (CLI) | payer MEDICARE | END 2017-04-23 10:53 | disposition home or self-care (01) | LOC: BICCT 10:52 | PROVIDERS: ATTEND Internal Medicine | DX: R93.8 Abnormal findings on diagnostic imaging of other specified body structures (principal); J47.9 Bronchiectasis, uncomplicated | CPT/HCPCS: 71250 ==

== ENCOUNTER 2017-05-27 10:11 | Outpatient (CLI) | payer MEDICARE ==
--- NOTE | 2017-05-27 12:11 | RAD ---
PA AND LATERAL CHEST XRAY: DATE: 05/27/17. HISTORY: Dyspnea. COMPARISON: 03/25/17. FINDINGS: Cardiac silhouette and pulmonary vasculature are within normal limits. There are increased interstit ial densities seen throughout the lungs bilaterally which may be related to chronic interstitial fibr otic lung changes. No focal consolidation or pleural fluid is appreciated on this exam. Lungs do ap pear hyperexpanded similar to the prior study. Cardiac silhouette and pulmonary vasculature within n ormal limits. There is right convex curvature of the thoracic spine with multilevel degenerative holland nges again present. Vascular calcification is seen in the thoracic aorta. Cutler screws again overl ie the right humeral head and there is evidence of osteopenia. IMPRESSION: 1 . Stable chest with chronic lung changes. 2. Osteopenia. POS: [facility]
== END 2017-05-27 10:12 | disposition home or self-care (01) ==
LOC: RAD 10:11
PROVIDERS: ATTEND Internal Medicine
DX: R06.00 Dyspnea, unspecified (principal); M85.80 Other specified disorders of bone density and structure, unspecified site
CPT/HCPCS: 71046

== ENCOUNTER 2017-05-31 06:48 | Day surgery (SDC) | payer MEDICARE ==
[2017-05-27 12:26] VITALS: BMI 16.2
[2017-05-31] MEDS ORDERED: Lidocaine 4% PF 5 ML AMP FS SCH (08:00)
[2017-05-31] MEDS ORDERED: Sodium Chloride 0.9% 1,000 ML IV SCH (08:00)
[2017-05-31] MEDS ORDERED: Lidocaine 1% (PF) 30 ML VIAL ONE (08:46)
[2017-05-31] MEDS ORDERED: Ondansetron HCl/PF 4 MG/2 ML Vial ONE (08:53)
[2017-05-31] MEDS ORDERED: Fentanyl 100 MCG/2 ML VIAL ONE (08:53)
[2017-05-31 11:38] LABS: BF Color Gray; Body Fluid Source Bronchioalveol Lavag; Clarity Cloudy/Turbid (Clear); RBC Background Count 0.001; Tube # EDTA
[2017-05-31 11:39] LABS: RBC Count-Automated 28000 /cumm; WBC/NonHematic-Auto 7760 /cumm
--- NOTE | 2017-05-31 12:37 | OP ---
DATE OF PROCEDURE: 05/31/2017 SERVICE: Pulmonary Medicine. PROCEDURES: Fiberoptic bronchoscopy with: 1. Visual airway inspection. 2. Bronchial alveolar lavage from the lingula. 3. Transbronchial biopsies from the lingula. PREPROCEDURE DIAGNOSIS: Pulmonary infiltrate. POSTPROCEDURE DIAGNOSIS: Pulmonary infiltrate. PROCEDURE WEIGHT LOSS PHYSICIAN: Dequan Higgins M.D. MEDICATIONS USED: For list of medications, please refer to anesthesia documentation. PREANESTHESIA ASSESSMENT: H&P had been performed. The patient's medications and allergies were revi ewed. Informed consent was obtained after discussing the risks, benefits, and rationale for performi ng the procedure as well as alternative options. DESCRIPTION OF PROCEDURE: A timeout was performed identifying the correct procedure and patient with name and date of . A diagnostic fiberoptic bronchoscope was introduced through the existing en dotracheal tube. It was advanced into the trachea. There was copious purulent secretions throughout bilateral lung christian that were fairly thin. After vigorous suctioning throughout the bilateral lee gs, a tracheobronchial tree inspection was carried out. I could clearly identify the right upper lob e, right middle lobe, right lower lobe, left upper lobe, lingula, and left lower lobe. Anatomy was c ompletely normal to the segmental level. No endobronchial disease was identified. Then, bronchoalve olar lavage was obtained from the lingula. Transbronchial biopsies were obtained from the left upper lobe under fluoroscopic guidance. Hemostasis was verified and the bronchoscope was subsequently rem francis from the patient. Post-procedure fluoroscopy did not demonstrate a pneumothorax. FINDINGS: 1. No endobronchial disease was identified. 2. Secretions were copious, and purulent/yellow throughout bilateral lungs. They were fairly thin. SPECIMENS OBTAINED: 1. BAL for microbiology and cell count. 2. Transbronchial biopsies for pathology. COMPLICATIONS: None. FLUOROSCOPY TIME: 2 minutes. DISPOSITION: The patient will be discharged home with post-procedure instructions once she meets balwinder wright. She will return to clinic as previously directed in several weeks.
[2017-05-31 13:00] LABS: BF Segmented Neutrophils 99 %; Cell Count Non Hematic 1 %
[2017-05-31] MEDS ORDERED: PHENYLEPHRINE-NS 100 MCG/ML 10 ML SYRINGE ONE (13:58)
[2017-05-31] MEDS ORDERED: PROPOFOL 200 MG/20 ML VIAL ONE (13:58)
[2017-05-31] MEDS ORDERED: Lidocaine 1% PF 5 ML VIAL ONE (13:58)
[2017-06-03 13:19] LABS: Fungus Stain Final report (.)
== END 2017-05-31 12:55 | disposition home or self-care (01) ==
LOC: SDC 06:48
PROVIDERS: ATTEND Internal Medicine
PROC: 0B9H8ZX Drainage of Lung Lingula, Via Natural or Artificial Opening Endoscopic, Diagnostic (ICD-10-PCS; principal; 2017-05-31)
PROC: 0BDG8ZX Extraction of Left Upper Lung Lobe, Via Natural or Artificial Opening Endoscopic, Diagnostic (ICD-10-PCS; 2017-05-31)
DX: R91.8 Other nonspecific abnormal finding of lung field (principal); J44.9 Chronic obstructive pulmonary disease, unspecified; E78.5 Hyperlipidemia, unspecified; E11.9 Type 2 diabetes mellitus without complications; G47.00 Insomnia, unspecified; Z88.5 Allergy status to narcotic agent; Z79.899 Other long term (current) drug therapy
CPT/HCPCS: 76000; 85060; 87070; 87102; 87116; 87206; 88305; 88313; 89051; J2001; J2405; J2704; J3010; J7620

== ENCOUNTER 2017-06-25 17:28 | Inpatient (IN) | payer MEDICARE ==
[2017-06-25] MEDS ORDERED: HYDROcodone/Acetaminophen 10/325 mg Tablet ONE (17:50)
[2017-06-25 18:02] LABS: #Basophils 0.1 thou/uL (0.0-0.2); #Eosinphils 0.2 thou/uL (0.0-0.7); #Lymphocytes 1.3 thou/uL (1.20-3.40); #Monocytes 0.7 thou/uL (0.11-0.59); %Eosinophils 2.4 % (0.0-10.0); %Lymphocytes 13.9 % (21.0-51.0); %Monocytes 7.1 % (0.0-10.0); %Neutrophils 75.7 % (42.0-75.0); Hemoglobin 9.2 g/dL (12.0-16.0); Mean Corpuscular HGB CONC 31.9 g/dL (32.0-36.0); Mean Corpuscular Hemoglobin 27.1 pg (27.0-31.0); Mean Platelet Volume 6.5 fL (7.4-10.4); Platelet Count 343 thou/uL (130-400); RBC Distribution Width 13.5 % (11.5-14.5); Red Blood Cell (RBC) Count 3.39 mill/uL (4.20-5.40); White Blood Cell (WBC) Count 9.2 thou/uL (4.8-10.8)
[2017-06-25 18:43] LABS: ALT (SGPT) 11 U/L (8-55); AST (SGOT) 15 U/L (5-34); Albumin 3.8 g/dL (3.4-4.8); Alkaline Phosphatase 91 U/L (40-150); Anion Gap 16 mmol/L (10-20); BUN (Urea Nitrogen) 55 mg/dL (9.8-20.1); Bilirubin, Total Less than 0.2 mg/dL (0.2-1.2); Calc. Creatinine Clearance 0 mL/min (70-130); Carbon Dioxide 24 mmol/L (23-31); Chloride 102 mmol/L (98-107); Estimated GFR-MDRD 22; Globulin 3.6 g/dL (2.4-3.5); Glucose 97 mg/dL (83-110); Potassium 4.8 mmol/L (3.5-5.1); Protein, Total 7.4 g/dL (6.0-8.3); Sodium 137 mmol/L (136-145)
[2017-06-25 19:20] LABS: Bilirubin Negative (Negative); Blood, Urine Negative (Negative); Clarity CLEAR (Clear); Glucose, Urine (Dipstick) Negative (Negative); Leukocyte Moderate (Negative); Nitrite Negative (Negative); Protein, Urine (Dipstick) Negative (Neg-Trace); Specific Gravity, Urine 1.015 (1.002-1.036); Urobilinogen 0.2 mg/dL (0.2-1.0)
[2017-06-25 19:24] LABS: Bacteria/HPF None Seen HPF (None Seen); Hyaline Casts/LPF 0-3 HYALINE CAST LPF (0-3 Hyaline); Pathc Cast-AUWi Flag 0.29 (0-2.49); Squamous Epithelial 0-3 HPF (0-3); WBC/HPF 21-50 HPF (0-3)
[2017-06-25 19:33] LABS: Renal Epithelial None Seen HPF (0-3); Transitional Epithelial NONE SEEN HPF (0-3)
--- NOTE | 2017-06-25 20:51 | CT ---
NONCONTRAST ENHANCED CT IMAGES ABDOMEN AND PELVIS 06/25/17 HISTORY: Patient with history of renal failure and renal stones. The patient was sent to the Emergency Room De partment by Dr. Carrasco. Noncontrast enhanced CT images of the abdomen and pelvis is obtained. IV and oral contrast was not gi xiomara. The lung bases demonstrate areas of bibasilar scar. Subtle areas of patchy density also seen in both lung bases. These may represent chronic lung parenchymal changes although lung base extensive interst itial metastatic disease cannot be excluded. The heart is on the patient's left. The liver and stomach are rotated with the liver on the left uppe r quadrant of the abdomen and the stomach in the right portion of the abdominal cavity. Multiple sple nules also seen in the right upper quadrant of the abdominal cavity. Atherosclerotic calcification of the aorta seen. Multiple nonobstructing left renal calculi seen. There appears to be an area of calcification in the upper pole right renal calyces. There is a huge approximately 18 mm distal right ureteral calculus just above the right ureterovesicu lar junction. This large right distal ureteral calculus appears to have migrated from the right renal pelvis on previous exam from 03/08/15 to its present location. IMPRESSION: 1. Situs inversus. 2. Large distal right ureteral calculus. 3. 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 POS: [facility]
[2017-06-25] MEDS ORDERED: Lactated Ringer's 1,000 ML IV SCH (21:30)
[2017-06-25 22:11] VITALS: BMI 16.7
[2017-06-25] MEDS ORDERED: Ondansetron HCl/PF 4 MG/2 ML Vial IVP PRN (22:17)
[2017-06-25] MEDS ORDERED: hydrALAZINE 20 MG/ML VIAL SLOW IVP PRN (22:17)
[2017-06-25] MEDS ORDERED: cloNIDine 0.1 MG TAB PO PRN (22:17)
[2017-06-25] MEDS ORDERED: PROVENTIL INHALER 6.7 G (200 INHALATIONS) INH PRN (22:17)
[2017-06-25] MEDS ORDERED: Tamsulosin HCl 0.4 MG CAP PO SCH (22:30)
[2017-06-25] MEDS: Sodium Chloride 0.9% 1,000 ML IV SCH (23:44)
[2017-06-25] MEDS: cefTRIAXone\\ROCEPHIN 2 GM in Sodium Chloride 0.9% 100 ML IVPB SCH (23:45)
[2017-06-25] MEDS: Acetaminophen 500 MG TAB PO PRN (23:47)
--- NOTE | 2017-06-26 04:47 | HP ---
DATE OF ADMISSION: 06/25/2017 PRIMARY CARE PHYSICIAN: Rita Carrasco M.D. CHIEF COMPLAINT: Abnormal lab results. HISTORY OF PRESENT ILLNESS: This is a 71-year-old female who presents to [facility] emergency department after being directed by her primary care provider to seek medical attention a fter reviewing recent laboratory data including renal function test. The patient was noted with elev ated creatinine of 2.19 with estimated GFR of 22, beyond normal baseline chronic kidney disease with estimated GFR in the 40s-50s range. The patient denied any specific blood in the urine, back or flan k pain. The patient does state that she has a history of renal lithiasis with spontaneous passage of multiple stones remotely. The patient underwent CT imaging of the abdomen and pelvis showing a larg e distal right ureteral calculus, approximately 2 cm. The patient received IV Levaquin and intraveno us normal saline in the emergency room. The patient denied any known fever, chills, back pain, dysur ia, or difficulty with bowel movements. 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 The patient currently a sking when she may return home. PAST MEDICAL HISTORY: 1. Renal lithiasis. 2. Situs inversus. 3. Hyperlipidemia. 4. Chronic anemia. 5. Chronic kidney disease stage 3. PAST SURGICAL HISTORY: 1. Status post appendectomy. 2. Status post cholecystectomy. 3. Status post section x2. 4. Status post hysterectomy. 5. Status post bronchoscopy with bronchoalveolar lavage, negative pathology. CURRENT MEDICATIONS: 1. Albuterol HFA 1 puff inhaled q.i.d. p.r.n. 2. Enteric-coated aspirin 81 mg 1 tab p.o. daily. 3. Symbicort 160/4.5 one puff inhaled b.i.d. 4. Lasix 20 mg p.o. daily. 5. Simvastatin 80 mg p.o. at bedtime. 6. Trazodone 50 mg p.o. at bedtime. ALLERGIES: To CODEINE. FAMILY HISTORY: Patient denies any inheritable diseases as she was adopted. SOCIAL HISTORY: Resides in [place], [place]. Receives [facility]. No current al cohol, tobacco or illicit drug use. Functional of all activities of daily living. REVIEW OF SYSTEMS: The following complete review of systems was negative, unless otherwise mentioned in the HPI or below: Constitutional: Weight loss or gain, ability to conduct usual activities. Sk in: Rash, itching. Eyes: Double vision, pain. ENT/Mouth: Nose bleeding, neck stiffness, pain, te nderness. Cardiovascular: Palpitations, dyspnea on exertion, orthopnea. Respiratory: Shortness of breath, wheezing, cough, hemoptysis, fever or night sweats. Gastrointestinal: Poor appetite, abdom inal pain, heartburn, nausea, vomiting, constipation, or diarrhea. Genitourinary: Urgency, frequenc y, dysuria, nocturia. Musculoskeletal: Pain, swelling. Neurologic/Psychiatric: Anxiety, depressio n. Allergy/Immunologic: Skin rash, bleeding tendency. Otherwise negative except as stated per HPI. PHYSICAL EXAMINATION: VITAL SIGNS: On admission, blood pressure 129/59, pulse 76, respiratory rate 18, temperature 97.5 de grees Fahrenheit, O2 saturation 98% on room air. GENERAL APPEARANCE: This is a 71-year-old female, alert and oriented x3, pleasant, smiling , in no acute distress. HEENT: Pupils are equal, round, and reactive to light and accommodation. Extraocular muscles are in tact. No scleral icterus, no conjunctival injection. Nares patent. OP is clear. NECK: Supple, no cervical adenopathy, no thyromegaly, no carotid bruits, no JVD appreciated. Cervic al spine with full active and passive range of motion. No meningeal signs appreciated. CHEST: Lungs are clear to auscultation bilaterally. CARDIOVASCULAR: S1, S2, without noted murmur, rub, or gallop. ABDOMEN: Rounded, soft, nontender, nondistended. Bowel sounds are positive in all four quadrants. There is no hepatosplenomegaly, no abdominal bruits, no rebound or guarding appreciated. EXTREMITIES: Warm and dry with fair turgor. No clubbing, cyanosis, or asymmetric edema appreciated. Pulses palpable distally at the dorsalis pedis, posterior tibial, and popliteal arteries bilaterall y. Capillary refill less than 2 seconds. NEUROLOGIC: Cranial nerves II-XII are grossly intact. No focal or lateralizing signs appreciated. PERTINENT LABORATORY AND X-RAY FINDINGS: Sodium 137, potassium 4.8, chloride 102, CO2 of 24, BUN 55, creatinine 2.19, estimated GFR of 22, glucose 97, calcium 10.0. LFTs within normal limits. Albumin 3.8. CBC showed a white blood cell count of 9.2, hemoglobin 9.2, hematocrit 29, platelet count 343 with 76% neutrophilia. CT of the abdomen and pelvis dated 06/25/2017 showed situs inversus. Large d istal right ureteral calculus, 1.8 cm. Occlusion of the distal IVC, chronic. ASSESSMENT AND PLAN: 1. Acute kidney injury on chronic kidney disease stage 3. We will continue intravenous normal salin e 100 mL per hour. Avoid nephrotoxic agents and contrast media. Suspect secondarily to right ureter ovesical junction stone. Continue to monitor renal function and repeat creatinine in the a.m. Tien nue intravenous fluids to maintain adequate hydration. 2. Right ureterovesical junction calculus. We will consult Urology Service for evaluation. Continu e intravenous fluids as outlined previously. Initiate Flomax 0.4 mg daily. Likely patient will need ureteroscopy with likely stent placement. 3. Urinary tract infection, secondarily to #2. We will continue Rocephin 2 g IV q.24 hours, pending final urine culture results. 4. Chronic normocytic anemia. Hemoglobin trend similar compared to previous lab results dating to 2 016. No evidence to suggest acute blood loss. Repeat CBC in the a.m. 5. Prophylaxis. Sequential compression devices while in bed. Pepcid 20 mg p.o. b.i.d. 6. Code status is FULL. Surrogate medical decision maker is Kisha Gomez.
[2017-06-26 05:48] LABS: Anion Gap 10 mmol/L (10-20); BUN (Urea Nitrogen) 50 mg/dL (9.8-20.1); Calc. Creatinine Clearance 26 mL/min (70-130); Calcium 8.7 mg/dL (7.8-10.44); Carbon Dioxide 25 mmol/L (23-31); Chloride 105 mmol/L (98-107); Estimated GFR-MDRD 33; Glucose 114 mg/dL (83-110); Sodium 136 mmol/L (136-145)
[2017-06-26 07:06] LABS: Band 9 % (5-11); Eosinophils 1 % (0-10); Hypochromia SLIGHT = 6-15 cells (100X) (0-5/hpf); Lymphocytes 6 % (21-51); MDiff Complete? YES; Mean Corpuscular HGB CONC 31.2 g/dL (32.0-36.0); Mean Corpuscular Hemoglobin 26.4 pg (27.0-31.0); Mean Corpuscular Volume 84.6 fl (81.0-99.0); Mean Platelet Volume 6.4 fL (7.4-10.4); Monocytes 12 % (0-10); Neutrophil 72 % (42-75); PLT Morphology Comment Appears Adequate; Platelet Count 276 thou/uL (130-400); RBC Distribution Width 13.4 % (11.5-14.5); Red Blood Cell (RBC) Count 3.02 mill/uL (4.20-5.40); White Blood Cell (WBC) Count 7.5 thou/uL (4.8-10.8)
[2017-06-26] MEDS: Mometasone/Formoterol 120 PUFF INHALER INH SCH ×2 (07:45→19:01)
[2017-06-26] MEDS: Famotidine 20 MG TAB PO SCH (07:49)
[2017-06-26] MEDS: Sodium Chloride 0.9% 1,000 ML IV SCH ×3 (07:49→18:17)
[2017-06-26] MEDS ORDERED: Fentanyl 100 MCG/2 ML VIAL ONE (08:59)
[2017-06-26] MEDS ORDERED: Non-Formulary Item 1 EACH (Budesonide-Formoterol [Symbicort 160-4.5] 1 PUFF) INH SCH (09:00)
[2017-06-26] MEDS ORDERED: Iothalamate Meglumine 60% 50 ML VIAL FS ONE (09:01)
[2017-06-26] MEDS ORDERED: Albuterol Sulfate 1.25 MG/3 ML NEB ONE (09:35)
[2017-06-26] MEDS ORDERED: Albuterol Sulfate HFA (OR ONLY) ONE (09:36)
[2017-06-26] MEDS ORDERED: Ondansetron HCl/PF 4 MG/2 ML Vial IVP PRN (11:20)
[2017-06-26] MEDS ORDERED: Promethazine HCl 25 MG/ML VIAL IM PRN (11:20)
[2017-06-26] MEDS ORDERED: Promethazine HCl 25 MG/ML VIAL SLOW IVP PRN (11:20)
--- NOTE | 2017-06-26 12:06 | PDOC.PN ---
- Subjective Encounter Start Date: 06/26/17 Encounter Start Time: 12:03 Subjective: just sore in back - Objective Resuscitation Status: Resuscitation Status FULL:Full Resuscitation MAR Reviewed: Yes Vital Signs & Weight: Vital Signs (12 hours) Temp Pulse Resp BP Pulse Ox 06/26/17 08:00 97.5 F L 74 16 98/52 L 98 06/26/17 07:46 99 06/26/17 07:45 78 15 99 Weight Admit Weight 110 lb 0.16 oz Weight 110 lb 0.16 oz I&O: 06/25/17 06/26/17 06/27/17 06:59 06:59 06:59 Intake Total 700 Balance 700 Result Diagrams: 06/26/17 04:54 06/26/17 04:54 Additional Labs: Accuchecks 06/26/17 03:36 POC Glucose 115 H Phys Exam - Physical Examination Neck: no JVD Respiratory: clear to auscultation bilateral Cardiovascular: RRR, no significant murmur Gastrointestinal: soft, non-tender, positive bowel sounds Musculoskeletal: no edema Dx/Plan (1) Acute renal failure Status: Acute (2) Anemia Code(s): D64.9 - ANEMIA, UNSPECIFIED Status: Chronic Qualifiers: Anemia type: unspecified cause Qualified Code(s): D64.9 - Anemia, unspecified (3) HLD (hyperlipidemia) Code(s): E78.5 - HYPERLIPIDEMIA, UNSPECIFIED Status: Chronic (4) Renal calculi Status: Chronic - Plan post ureteral stent by -: monitor renal fcn -: on iv antibx -: selected home meds * .
--- NOTE | 2017-06-26 12:13 | OP ---
DATE OF SERVICE: 06/26/2017 PREOPERATIVE DIAGNOSES: 1. A 71-year-old female with history of large right distal ureteral calculi. 2. Acute renal insufficiency. 3. History of recurrent kidney stone. 4. Right ureteral calculi just proximal to the uretrovesical junction measuring 1.8 cm, left punctate lower pole renal calculi x2. 5. Bilateral renovascular calcification, more on the left. POSTOPERATIVE DIAGNOSES: 1. A 71-year-old female with history of large right distal ureteral calculi. 2. Acute renal insufficiency. 3. History of recurrent kidney stone. 4. Right ureteral calculi just proximal to the uretrovesical junction measuring 1.8 cm, left punctate lower pole renal calculi x2. 5. Bilateral renovascular calcification, more on the left. PROCEDURE: Cystoscopy, right retrograde 6 x 24 stent. SURGEON: Kaylin Birch D.O. ANESTHESIA: LMA general. ANESTHESIOLOGIST: Ashvin Encarnacion M.D. COMPLICATIONS: None apparent. DISPOSITION: To recovery room in stable condition. INDICATIONS FOR THE PROCEDURE AND HISTORY: Ms. Varela is a 71-year-old female with history of large right renal pelvic calculi on previous imaging, she has had progression of stone in size, with distal migration. She was seen by Dr. Figueroa in February 2017 and was advised regarding treatment. She does not desire to see Dr. Figueroa again. She is admitted as primary care physician referred the patient to the ER due to acute renal insufficiency from baseline creatinine of 0.6-1.1 to -2.1. She remains pain free and has been since February. I did discuss with patient there is possibly a component of diminished function of the right kidney as there is no obvious hydronephrosis on CT scan performed last night. I informed the patient regarding options of cystoscopy, retrograde stent, and monitor her kidney function, i.e., at a later date with renal scan. She desires to proceed. I also discussed with patient regarding options of observation as there was no hydronephrosis and she desired to proceed with trial of surgical intervention. She is in full understanding that she will require a secondary procedure given very large nature of her stone. Questions encouraged and answered and she desired to proceed. DESCRIPTION OF THE PROCEDURE: After an informed consent is signed, the patient is taken to the operating room, placed in a dorsolithotomy position with the genital area prepped and draped in the usual surgical sterile fashion. A 21- Uzbek cystoscope was utilized for cystoscopy. There was mild resistance passing the cystoscope; however, passed without difficulty. There was some debris within the bladder. The UOs are normal orthotopic position. There were some prominent venous vascularity of the bladder mucosa, however, no active bleeding is appreciated.: The right UO appeared to be somewhat patulous. An open-ended catheter was able to be passed without difficulty and using 1:1 diluted contrast, we did a right retrograde pyelogram which demonstrated that there was some prominence of the proximal ureter with mild hydronephrosis on retrograde. I was able to easily pass the open-ended catheter above the stone and a 0.35 Sensor wire was passed into the right upper pole. A 6 x 24 double-J ureteral stent was passed without difficulty. The bladder was completely emptied and she tolerated the procedure well. Her preliminary urine demonstrated no significant infection component. Culture is pending. We will monitor her renal function. Elective ureteroscopy, laser lithotripsy as an outpatient is advised. Recommend the patient be observed overnight with follow up renal function. If stable with final urine culture, finalized, patient may be discharged possibly tomorrow. [facility]
--- NOTE | 2017-06-26 13:25 | RAD ---
RIGHT RETROGRADE PYELOGRAM: Date: 06/26/17 HISTORY: Right ureteral stone with stent placement. FINDINGS: A series of 3 films are obtained. These show filling defect in the distal right ureter. Ureteral sten t is placed on the final image. IMPRESSION: Distal right ureteral calculus with placement of a right ureteral stent. POS: [facility]
[2017-06-26] MEDS ORDERED: PROPOFOL 200 MG/20 ML VIAL ONE (15:24)
[2017-06-26] MEDS ORDERED: ePHEDrine/0.9% NaCl/PF SYRINGE 50 mg/10 ml ONE (15:24)
[2017-06-26] MEDS ORDERED: Lidocaine 1% PF 5 ML VIAL ONE (15:24)
[2017-06-26] MEDS ORDERED: Ondansetron HCl/PF 4 MG/2 ML Vial ONE (15:24)
[2017-06-26] MEDS ORDERED: Dexamethasone 20 MG/5 ML VIAL ONE (15:24)
--- NOTE | 2017-06-26 16:50 | CON ---
DATE OF CONSULTATION: 06/26/2017 INPATIENT CONSULTATION PRIMARY CARE PHYSICIAN: Rita Carrasco M.D. HISTORY OF PRESENT ILLNESS: Ms. Varela is a 71-year-old female who presented to the emergency room last night, due to recommendations per primary care physician, Dr. Carrasco as there was acute renal insufficiency from baseline creatinine of 0.6-1.1 to creatinine of 2.1. She denies significant flank pain, nausea, vomiting. She was seen by Dr. Figueroa back on 02/20/2017 due to large right distal ureteral calculi. She was referred to previously Dr. Lopez, but did not show. She was advised by Dr. Figueroa to undergo right stent ESWL. On today's exam, she states that she does not desire to see Dr. Figueroa. As such, she has been waiting to see Dr. Nelson who is my partner; however, has no showed , canceled 3 times. When inquired regarding this matter, she adamantly refuses to follow up with Dr. Moreno, therefore, secondary referral to Steve . She presents to the ER last night and a CT demonstrated distal migration of her very large ureteral stone; however, there is no significant hydronephrosis. Back in February, she also did not have significant discomfort at that time as well and her renal function at that time was mildly elevated from 0.6, 0.9 to 1.2. Today, she appears to be resting comfortably. She has been previously passed multiple stones. PAST MEDICAL HISTORY: Recurrent renal lithiasis versus hyperlipidemia, chronic anemia, chronic kidney disease. PAST SURGICAL HISTORY: Appendectomy, cholecystectomy, x2, bronchoscopy, lavage negative for pathology. CURRENT MEDICATIONS: Include Tylenol, Preventa, Rocephin, Catapres, Pepcid, Apresoline, Dulera, Zofran, Flomax and Desyrel. She currently lives in a nursing [facility]. Denies tobacco abuse. Functional with daily activities. PHYSICAL EXAMINATION: VITAL SIGNS: Stable. She is resting comfortably. HEENT: Grossly unremarkable. HEART: Regular rate. LUNGS: Clear. ABDOMEN: Soft, nontender, and nondistended. GENITOURINARY: Demonstrates atrophic vaginitis with no significant prolapse. EXTREMITIES: No cyanosis, clubbing or edema. PERTINENT LABORATORY DATA AND IMAGING: Baseline creatinine 0.6-1.1. She is admitted with creatinine of 2.1 with hydration. Her creatinine is 1.5. Urinalysis demonstrates 4-6 rbc's, 21-50 wbc's, no epithelial no bacteria. Urine culture is pending. CT stone protocol on 06/25/2017, hard to exam the patient's left, punctate left renal cholelithiasis with no evidence of left hydronephrosis. Right renal calcific density vascular in origin. There is a large right distal ureteral stone just at the level of the UVJ measuring 2 cm. Previously, the stone was in the renal pelvis in February 2015, it was in the mid distal ureter. 02/2015; CT demonstrates resolution of previous right UVJ stone, nonobstructing right renal pelvic stone measuring 1.5 cm, Bosniak II right renal cyst. CT on 06/2013, 5 mm right UVJ stone, right renal stone, right 1 cm renal pelvic stone. IMPRESSION AND PLAN: Ms. Varela is a 71-year-old female with history of large right renal pelvic stone subsequently migrated into the ureter and now into the distal ureter just proximal to the UVJ. She presents with acute renal insufficiency. She has had no significant pain even with presentation of significant hydronephrosis few months ago. There is a possibility that she has lost the function of her kidney or has diminished significantly. Due to the very large stone, I discussed with patient regarding options of stent and ureteroscopy, laser lithotripsy as the stone is very large in size. She will be worked up for functional outcome of the right kidney. She desires to proceed with stent now and is in full understanding that she will require ureteroscopy, laser lithotripsy at a later date. RIGOBERTO
[2017-06-26] MEDS: Acetaminophen 500 MG TAB PO PRN (18:53)
[2017-06-26] MEDS ORDERED: Tamsulosin HCl 0.4 MG CAP PO SCH (21:00)
[2017-06-26] MEDS: traZODone HCl 50 MG TAB PO SCH (21:01)
[2017-06-26] MEDS: cefTRIAXone\\ROCEPHIN 2 GM in Sodium Chloride 0.9% 100 ML IVPB SCH (22:56)
[2017-06-27] MEDS: Sodium Chloride 0.9% 1,000 ML IV SCH ×2 (03:49→13:05)
[2017-06-27 04:43] LABS: Anion Gap 9 mmol/L (10-20); BUN (Urea Nitrogen) 36 mg/dL (9.8-20.1); Calc. Creatinine Clearance 28 mL/min (70-130); Calcium 8.5 mg/dL (7.8-10.44); Carbon Dioxide 22 mmol/L (23-31); Chloride 109 mmol/L (98-107); Estimated GFR-MDRD 37; Glucose 103 mg/dL (83-110); Potassium 4.2 mmol/L (3.5-5.1); Sodium 136 mmol/L (136-145)
[2017-06-27] MEDS: Mometasone/Formoterol 120 PUFF INHALER INH SCH ×2 (07:15→18:19)
[2017-06-27] MEDS: Phenazopyridine HCl 97.5 MG TABLET PO PRN (09:24)
[2017-06-27] MEDS: Famotidine 20 MG TAB PO SCH (09:24)
[2017-06-27] MEDS: Ondansetron ODT 4 MG TAB PO PRN (13:04)
--- NOTE | 2017-06-27 13:57 | PDOC.PN ---
- Subjective Encounter Start Date: 06/27/17 Encounter Start Time: 12:45 -: old records requested/rev Pt seen and examined, chart reviewed in its entirety, this is my first visit with this patient. Follow up for R ureteral stone with obstruction, LÓPEZ, CKD 3, fall and possible syncope Pt feeling better, larg eincrease in UOP since cysto. no F/c, no V/D/C, some nausea earlier, slightly better after zofran. able to walk in hallway with nursing. no acute overnight events. some pelvic pain post cysto, denies hematuria All systems reviewed and neg x as above - Objective Resuscitation Status: Resuscitation Status FULL:Full Resuscitation MAR Reviewed: Yes Vital Signs & Weight: Vital Signs (12 hours) Temp Pulse Resp BP Pulse Ox 06/27/17 08:00 97.4 F L 70 16 96 06/27/17 07:47 97.4 F L 70 16 134/60 96 06/27/17 07:15 76 14 98 Weight Admit Weight 110 lb 0.16 oz Weight 110 lb 0.16 oz I&O: 06/26/17 06/27/17 06/28/17 06:59 06:59 06:59 Intake Total 700 3250 Balance 700 3250 Result Diagrams: 06/26/17 04:54 06/27/17 03:51 Radiology Reviewed by me: Yes EKG Reviewed by me: Yes Phys Exam - Physical Examination Constitutional: NAD cachectic-looking HEENT: PERRLA, moist MMs, sclera anicteric, oral pharynx no lesions Neck: no nodes, no JVD, supple, full ROM Respiratory: no wheezing, no rales, no rhonchi, clear to auscultation bilateral Cardiovascular: RRR, no significant murmur, no rub Gastrointestinal: soft, non-tender, no distention, positive bowel sounds Musculoskeletal: no edema Neurological: non-focal, normal sensation, moves all 4 limbs Lymphatic: no nodes Psychiatric: normal affect, A&O x 3 Skin: no rash, normal turgor, cap refill <2 seconds Dx/Plan (1) CKD (chronic kidney disease), stage III Code(s): N18.3 - CHRONIC KIDNEY DISEASE, STAGE 3 (MODERATE) Status: Chronic (2) Right ureteral calculus Code(s): N20.1 - CALCULUS OF URETER Status: Acute Comment: s/p cysto and stent. usually remain in for 2-3 weeks. follow up with urology (3) Acute renal failure Status: Acute (4) Obstruction of right ureter Code(s): N13.5 - CROSSING VESSEL AND STRICTURE OF URETER W/O HYDRONEPHROSIS Status: Resolved Comment: due to renal stone, resolved after stent placement - Plan cont current plan of care, PT/OT, out of bed/ambulate, DVT proph w/heparin * . AM labs, if Cr continues to improve, will plan to discharge in 1-2 days
[2017-06-27] MEDS: traZODone HCl 50 MG TAB PO SCH (20:36)
[2017-06-27] MEDS: Acetaminophen 500 MG TAB PO PRN (20:36)
--- NOTE | 2017-06-27 21:42 | PRG ---
DATE OF SERVICE: 06/27/2017 SUBJECTIVE: Patient without complaints, doing well, minimal discomfort: OBJECTIVE: VITAL SIGNS: Stable, 97, 70, 16, 96, 134/60. I's and O's 1950 in, 1300 out. Urine output per patient has been relatively clear. ABDOMEN: Soft, nontender, nondistended. PERTINENT LABORATORY DATA: Creatinine on admission 2.1, currently 1.39. Urine culture preliminary negative currently on Rocephin. IMPRESSION AND PLAN: 1. Ms. Varela is a 71-year-old female with history of large right distal ureteral calculi measuring 1.8-2 cm. 2. Left punctate renal lithiasis. 3. Bilateral renal vascular calcification underwent cystoscopy, stent placement uneventfully. As her urine culture is negative, I informed patient that we could proceed with ureteroscopy, laser lithotripsy tomorrow if she desires to proceed. Patient is open to this and states that she would prefer to be treated while in house. N.p.o. after midnight, continue Rocephin. Repeat CBC and BMP in the morning. MTDD
[2017-06-27] MEDS: cefTRIAXone\\ROCEPHIN 2 GM in Sodium Chloride 0.9% 100 ML IVPB SCH (21:46)
[2017-06-28] MEDS: Sodium Chloride 0.9% 1,000 ML IV SCH ×4 (00:18→20:25)
[2017-06-28 06:06] LABS: #Basophils 0.1 thou/uL (0.0-0.2); #Eosinphils 0.2 thou/uL (0.0-0.7); #Monocytes 0.7 thou/uL (0.11-0.59); #Neutrophils 4.7 thou/uL (1.40-6.50); %Eosinophils 3.1 % (0.0-10.0); %Lymphocytes 15.5 % (21.0-51.0); %Monocytes 10.1 % (0.0-10.0); %Neutrophils 70.3 % (42.0-75.0); Mean Corpuscular HGB CONC 29.9 g/dL (32.0-36.0); Mean Corpuscular Volume 86.9 fl (81.0-99.0); Mean Platelet Volume 6.4 fL (7.4-10.4); Platelet Count 268 thou/uL (130-400); RBC Distribution Width 13.5 % (11.5-14.5); Red Blood Cell (RBC) Count 3.06 mill/uL (4.20-5.40); White Blood Cell (WBC) Count 6.6 thou/uL (4.8-10.8)
[2017-06-28 06:15] LABS: Anion Gap 8 mmol/L (10-20); BUN (Urea Nitrogen) 19 mg/dL (9.8-20.1); Calc. Creatinine Clearance 42 mL/min (70-130); Calcium 8.6 mg/dL (7.8-10.44); Carbon Dioxide 22 mmol/L (23-31); Chloride 115 mmol/L (98-107); Estimated GFR-MDRD 58; Glucose 106 mg/dL (83-110); Potassium 4.1 mmol/L (3.5-5.1); Sodium 141 mmol/L (136-145)
[2017-06-28] MEDS: Mometasone/Formoterol 120 PUFF INHALER INH SCH ×2 (06:45→18:30)
[2017-06-28] MEDS: Famotidine 20 MG TAB PO SCH (07:48)
[2017-06-28] MEDS ORDERED: Fentanyl 100 MCG/2 ML VIAL ONE (08:45)
[2017-06-28] MEDS ORDERED: Iothalamate Meglumine 60% 50 ML VIAL FS ONE (09:06)
[2017-06-28] MEDS ORDERED: Albuterol Sulfate HFA (OR ONLY) ONE (09:06)
[2017-06-28] MEDS ORDERED: Nitroglycerin 50 MG/250 ML BOT 0 ML ONE (09:54)
[2017-06-28] MEDS ORDERED: Nitroglycerin 2% Ointment 1 INCH/1 GM Packet ONE (09:56)
[2017-06-28] MEDS ORDERED: Albuterol Sulfate 1.25 MG/3 ML NEB ONE (11:10)
[2017-06-28] MEDS ORDERED: Glycopyrrolate 0.2 MG/ML 5 ML SYRINGE ONE (11:21)
[2017-06-28] MEDS ORDERED: Lidocaine 1% PF 5 ML VIAL ONE (11:21)
[2017-06-28] MEDS ORDERED: PROPOFOL 200 MG/20 ML VIAL ONE (11:21)
[2017-06-28] MEDS ORDERED: PHENYLEPHRINE-NS 100 MCG/ML 10 ML SYRINGE ONE (11:21)
[2017-06-28] MEDS ORDERED: PROVENTIL INHALER 6.7 G (200 INHALATIONS) ONE (11:21)
[2017-06-28] MEDS ORDERED: ePHEDrine/0.9% NaCl/PF SYRINGE 50 mg/10 ml ONE (11:21)
--- NOTE | 2017-06-28 11:47 | RAD ---
RIGHT RETROGRADE UROGRAM AND STENT REPLACEMENT: DATE: 06/28/17. HISTORY: Right ureteral stent replacement. COMPARISON: 06/26/17. FINDINGS: Initial image demonstrates removal of the previously seen ureteral stent with guidewire in place. Th e final image demonstrates replacement of a right ureteral stent with the proximal portion overlying the expected location of the right renal pelvis and distal portion overlying the expected location of the urinary bladder. Vascular calcification is seen in the abdominal aorta and iliac arteries. Pos tsurgical changes of the right hip are again present. IMPRESSION: Fluoroscopic images demonstrating replacement of a right ureteral stent. Correlation with intraoperat jailene findings is recommended. POS: SANDRA
--- NOTE | 2017-06-28 12:56 | OP ---
DATE OF SERVICE: 06/28/2017 PREOPERATIVE DIAGNOSES: 1. A 71-year-old female with 1.8-2 centimeter right distal ureteral stone. 2. Left renal vascular calcification. 3. Current admission due to acute renal insufficiency, resolved, status post stent. POSTOPERATIVE DIAGNOSES: 1. A 71-year-old female with 1.8-2 centimeter right distal ureteral stone. 2. Left renal vascular calcification. 3. Current admission due to acute renal insufficiency, resolved, status post stent. PROCEDURE: Cystoscopy, right 6 x 24 double-J ureteral stent exchange, balloon dilation of the right distal ureter, rigid ureteroscopy, laser lithotripsy, basket extraction, treatment of large ureteral stone complex. SURGEON: Kaylin Birch D.O. ANESTHESIA: General. DISPOSITION: Recovery room in stable condition. SPECIMEN: Stone for chemical analysis. INDICATIONS FOR THE PROCEDURE AND HISTORY: Ms. Varela is a 71-year-old female who presented earlier 02/2017 due to the same stone. Dr. Figueroa had seen the patient and advised regarding treatment. She does not desire to see Dr. Figueroa and was followed by her primary care. She was referred by her PCP as she developed acute renal insufficiency from baseline creatinine worsening. She underwent right ureteral stent placement over the weekend, and her renal function had been improving. As her urine culture is negative she presents today for definitive stone treatment on this admission. Risks and complications of the procedure was reviewed with her in detail including, but not limited to, bleeding, pain, infection, injury to adjacent organs, urosepsis. Possible secondary procedure was reviewed with her in detail and all questions answered to her satisfaction. She desired to proceed. DESCRIPTION OF THE PROCEDURE: After an informed consent is signed, the patient is taken to the operating room, placed in dorsal lithotomy position with the genital area prepped and draped in the usual surgical sterile fashion. Bilateral GUI hose, SCDs were provided. The patient has severe vaginal atrophy , there is some oozing from the vaginal introitus due to vaginal irritated atrophic tissue. A 21-Nigerien cystoscope was utilized for cystoscopy. The preexisting ureteral stent was removed. A 0.35 sensor wire was passed through the stent. We dilated the intramural ureter just distal to the large distal ureteral stone, balloon dilatation of the intramural ureter was performed using a [employer] 4 cm 12-Nigerien balloon. After appropriate balloon dilatation, I was able to pass the ureteroscope and engaged the stone. Using 360 micron laser fiber at 1.0 joules, we laser lithotripsied the stone into multiple tiny fragments mostly dust-like debris. The larger fragments were basket extracted. At the end of the procedure, we cleared the stone. What remained were minute stone like dust debris, did not warrant treatment. As there was significant stone debris within the bladder through a large stone treatment, we ellik evacuated most of the stone debris. A 6 x 24 double-J ureteral stent was replaced over the guidewire and the guidewire was subsequently removed. She tolerated the procedure well. There is endoscopic and fluoroscopic resolution of her stone. She was transferred to the recovery room in stable condition. The patient did have per Anesthesia a mild ST depression which resolved spontaneously. They will obtain a followup EKG. I did inform the [facility]ist, discussed with them that if she is medically stable, she may be discharged per their discretion. She will follow up with me 07/08/2017 at 8:15 a.m. with KUB 1 hour prior to the appointment. Anticipate cystoscopy stent pull under local. discharge postop RX empiric antibiotic therapy, ciprofloxacin for a course of 5 days, Colace 100 mg 1 p.o. b.i.d., pain management, AZO over the counter p.r.n., VESIcare 5 mg 1 p.o. daily for bladder spasm. MTDD
[2017-06-28] MEDS: Phenazopyridine HCl 97.5 MG TABLET PO PRN (13:06)
[2017-06-28] MEDS: Ondansetron ODT 4 MG TAB PO PRN (13:25)
--- NOTE | 2017-06-28 16:08 | PDOC.PN ---
- Subjective Encounter Start Date: 06/28/17 Encounter Start Time: 11:15 (in PACU) -: non-verbal Pt seen by urology last evening, stents removed, UCx neg. scheduled for litho this AM. to Cysto, brando procedure well, but post-op, had ST-T depressions. EKG obtained, looked like old one. Pt still sedated fom anesthesia. no F/C overnight, nauseated post op on trnasfer to floor later in day. Will keep overnight ROs not obtainable due to sedation - Objective Resuscitation Status: Resuscitation Status FULL:Full Resuscitation MAR Reviewed: Yes Vital Signs & Weight: Vital Signs (12 hours) Temp Pulse Resp BP Pulse Ox 06/28/17 15:15 97.4 F L 67 14 147/65 H 100 06/28/17 14:15 97.6 F 72 14 138/68 98 06/28/17 13:15 97.5 F L 71 16 109/59 L 95 06/28/17 12:45 97.6 F 66 16 117/56 L 100 06/28/17 12:15 97.5 F L 75 14 131/62 93 L 06/28/17 08:00 98 F 72 16 98 06/28/17 07:50 97.8 F 79 16 131/59 L 98 06/28/17 06:45 93 16 94 L Weight Admit Weight 110 lb 0.16 oz Weight 110 lb 0.16 oz I&O: 06/27/17 06/28/17 06/29/17 06:59 06:59 06:59 Intake Total 3250 3610 Balance 3250 3610 Result Diagrams: 06/28/17 05:36 06/28/17 05:36 EKG Reviewed by me: Yes Phys Exam - Physical Examination Constitutional: NAD HEENT: PERRLA, moist MMs, sclera anicteric, oral pharynx no lesions Neck: no nodes, no JVD, supple, full ROM Respiratory: no wheezing, no rales, no rhonchi, clear to auscultation bilateral Cardiovascular: RRR, no significant murmur, no rub Gastrointestinal: soft, non-tender, no distention, positive bowel sounds Musculoskeletal: no edema, pulses present Lymphatic: no nodes Skin: no rash, normal turgor, cap refill <2 seconds Dx/Plan (1) CKD (chronic kidney disease), stage III Code(s): N18.3 - CHRONIC KIDNEY DISEASE, STAGE 3 (MODERATE) Status: Chronic (2) Right ureteral calculus Code(s): N20.1 - CALCULUS OF URETER Status: Acute Comment: s/p cysto and stent, now stent removed. litho today. 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
[2017-06-28] MEDS: traZODone HCl 50 MG TAB PO SCH (20:27)
[2017-06-28] MEDS: TROSPIUM 20 MG TABLET PO SCH (20:27)
--- NOTE | 2017-06-28 20:57 | EKG ---
Test Reason : Blood Pressure : / mmHG Vent. Rate : 084 BPM Atrial Rate : 084 BPM P-R Int : 150 ms QRS Dur : 098 ms QT Int : 374 ms P-R-T Axes : 049 071 182 degrees QTc Int : 441 ms Sinus rhythm with occasional Premature ventricular complexes Abnormal ECG When compared with ECG of 19-FEB-2017 15:40, Premature ventricular complexes are now Present ST now depressed in Anterior leads Confirmed by SIDDHARTHA FERNANDEZ, SGabbie ([id number]) on 06/28/2017 8:56:58 PM Referred By: COLTON Confirmed By:DR. Mic CARL MD
[2017-06-28] MEDS: cefTRIAXone\\ROCEPHIN 2 GM in Sodium Chloride 0.9% 100 ML IVPB SCH (21:13)
[2017-06-28] MEDS: Acetaminophen 500 MG TAB PO PRN (22:10)
[2017-06-29] MEDS: Sodium Chloride 0.9% 1,000 ML IV SCH (05:44)
[2017-06-29] MEDS: Mometasone/Formoterol 120 PUFF INHALER INH SCH (06:38)
[2017-06-29] MEDS: Famotidine 20 MG TAB PO SCH (08:02)
[2017-06-29] MEDS: TROSPIUM 20 MG TABLET PO SCH (08:02)
[2017-06-29 08:38] LABS: #Basophils 0.1 thou/uL (0.0-0.2); #Eosinphils 0.1 thou/uL (0.0-0.7); #Lymphocytes 0.8 thou/uL (1.20-3.40); #Monocytes 0.7 thou/uL (0.11-0.59); #Neutrophils 4.6 thou/uL (1.40-6.50); %Basophils 1.2 % (0.0-1.0); %Eosinophils 2.3 % (0.0-10.0); %Lymphocytes 12.8 % (21.0-51.0); %Monocytes 10.7 % (0.0-10.0); %Neutrophils 72.9 % (42.0-75.0); Hemoglobin 8.6 g/dL (12.0-16.0); Mean Corpuscular HGB CONC 30.9 g/dL (32.0-36.0); Mean Corpuscular Hemoglobin 26.7 pg (27.0-31.0); Mean Corpuscular Volume 86.4 fl (81.0-99.0); Mean Platelet Volume 6.8 fL (7.4-10.4); Platelet Count 281 thou/uL (130-400); RBC Distribution Width 13.5 % (11.5-14.5); Red Blood Cell (RBC) Count 3.21 mill/uL (4.20-5.40); White Blood Cell (WBC) Count 6.4 thou/uL (4.8-10.8)
[2017-06-29 08:51] LABS: Anion Gap 8 mmol/L (10-20); BUN (Urea Nitrogen) 12 mg/dL (9.8-20.1); Calc. Creatinine Clearance 48 mL/min (70-130); Calcium 8.7 mg/dL (7.8-10.44); Carbon Dioxide 25 mmol/L (23-31); Chloride 112 mmol/L (98-107); Estimated GFR-MDRD 67; Glucose 92 mg/dL (83-110); Magnesium 1.9 mg/dL (1.6-2.6); Potassium 4.6 mmol/L (3.5-5.1); Sodium 140 mmol/L (136-145)
[2017-06-29 08:58] LABS: CKMB 3.9 ng/mL (0-6.6); Troponin I Less than 0.010 ng/mL (< 0.028)
--- NOTE | 2017-06-29 08:58 | PRG ---
DATE OF SERVICE: 06/29/2017 SUBJECTIVE: The patient is doing well today. No new complaints. OBJECTIVE: VITAL SIGNS: Stable. She is afebrile. LABORATORY: There are no new labs. Creatinine yesterday has normalized to 0.95 from admission 2.19. IMPRESSION AND PLAN: Ms. Varela is a 71-year-old female with history of large distal 1.8-2 cm sto ne with acute renal insufficiency, resolved with stent, postop day #1 ureteroscopy, laser lithotripsy with endoscopic clearance. She will follow up with me 07/08/2017 at 8:15 a.m. for a cysto stent pul l under local, KUB 1 hour prior to appointment. The patient is hard of hearing, will have to reach o ut to her after discharge so that she is aware of her followup appointment as I have concerns regardi ng her compliance with followup appointment. The patient may be discharged from urologic perspective , if medically stable. Discharge prescription from urologic perspective in chart, recommend antibiotics, AZO p.r.n., VESIcar e for bladder spasm, David Rodriguez 5/325 #40 p.r.n.
--- NOTE | 2017-06-29 09:46 | DIS ---
PRIMARY CARE PHYSICIAN: Dr. Rita Carrasco UROLOGIST: Dr. Kaylin Birch DATE OF ADMISSION: 06/25/2017 DATE OF DISCHARGE: 06/29/2017 DISCHARGE DIAGNOSES: 1. Nephrolithiasis, right distal ureteral with obstruction. 2. Acute kidney injury. 3. Recurrent kidney stones. 4. Depression. 5. Hyperlipidemia. 6. Chronic anemia. 7. Chronic kidney disease stage 3. Chronic anemia is likely of chronic kidney disease. 8. Reactive airway disease/possible chronic obstructive pulmonary disease. CONSULTATIONS: Urology, Dr. Birch. PROCEDURES: 1. Right ureteral stent placement 06/26/2017 with cystoscopy. She had a 6 x 24 mm stent into the right ureteral system. 2. Laser lithotripsy and cystoscopy 06/28/2017 with a basket stone extraction. HISTORY AND PHYSICAL: Ms. Varela is a 71-year-old female with the above history who presented to the emergency department on 06/25/2017 with an elevated creatinine sent there by her primary care physician. She had a creatinine of 2.19 and estimated GFR calculated at 22, which is above her normal baseline, which is normal with GFR in the 40-50 range. She denied any back pain or flank pain. No blood in the stool. She received IV Levaquin and IV fluids in the emergency department. 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 We were subsequently called for admission and Urology was consulted. HOSPITAL COURSE: The patient was seen and examined by Dr. Victoria on 06/25/2017. She was placed in inpatient status. She was continued on antibiotics and IV fluids and Urology was consulted. Overnight from 06/25/2017 to 06/26/2017 she did well. She was seen by Dr. Birch that morning and scheduled for a cystoscopy and stent placement which was successfully done. From 06/26/2017 to 06/28/2017, she had improvement in her renal function and overall was doing better and on 2017 went to the cystoscopy suite for laser lithotripsy. My note from yesterday states the stent was removed, however, I believe what I heard was instead the stent, it was that the stone was removed. Stent is in place. The patient did well, however, post-procedure she developed tachycardia and possible T-wave inversion and ST depression. EKG was done that was unchanged from prior. She was kept overnight for monitoring. From 06/28/2017 to 06/29/2017, she is feeling much better. She had no nausea or vomiting. No pain. Her labs are normal. Creatinine is at her baseline about 0.83 with a calculated GFR of 67. Cardiac biomarkers were unremarkable and she had no chest pain or palpitations. She was stable for discharge with outpatient followup. PHYSICAL EXAMINATION: The patient was seen and examined on the day of discharge. Discharge plan and disposition were discussed with the patient face to face at the bedside. DISCHARGE MEDICATIONS: 1. Symbicort 160/4.5 1 puff b.i.d. 2. Albuterol sulfate HFA 1 puff q.2h. p.r.n. shortness of breath. 3. Trazodone 50 mg p.o. at bedtime p.r.n. insomnia. 4. Trospium 20 mg p.o. b.i.d. 5. Lasix 20 mg p.o. daily p.r.n. edema or elevated blood pressure. 6. Aspirin 81 mg daily. 7. Zofran 4 mg p.o. q.4h. p.r.n. 8. Zocor 80 mg p.o. at bedtime. NEW MEDICATIONS: 1. AZO standard 97.5 mg p.o. t.i.d. p.r.n. Prescription given for 15 tablets with no refills. 2. Cipro 500 mg p.o. b.i.d. for 5 days. FOLLOWUP APPOINTMENTS: 1. Dr. Rita Carrasco within a week. 2. Dr. Birch in 1-2 weeks per her clinic schedule. DISCHARGE CONDITION: Stable. DISPOSITION: She is being [facility] via [facility] vehicle. She does have home health care with a nurse's touch, which will continue. DISCHARGE ACTIVITY: As tolerated. DISCHARGE DIET: Heart healthy recommended. MTDD
[2017-06-29] MEDS: Acetaminophen 500 MG TAB PO PRN (10:46)
[2017-06-29 12:22] VITALS: BP 142/66; TEMP 97.4
== END 2017-06-29 11:33 | disposition home or self-care (01) | DRG 669 ==
LOC: EEVIPCON 17:28 → ERS 17:28 → T4-B 20:00
PROVIDERS: ADMIT Family Medicine; ATTEND Family Medicine
PROC: 0T768DZ Dilation of Right Ureter with Intraluminal Device, Via Natural or Artificial Opening Endoscopic (ICD-10-PCS; 2017-06-26)
PROC: 0TC68ZZ Extirpation of Matter from Right Ureter, Via Natural or Artificial Opening Endoscopic (ICD-10-PCS; principal; 2017-06-28)
PROC: 0TP98DZ Removal of Intraluminal Device from Ureter, Via Natural or Artificial Opening Endoscopic (ICD-10-PCS; 2017-06-28)
PROC: 0T768DZ Dilation of Right Ureter with Intraluminal Device, Via Natural or Artificial Opening Endoscopic (ICD-10-PCS; 2017-06-28)
DX: N20.2 Calculus of kidney with calculus of ureter (principal); N39.0 Urinary tract infection, site not specified; N17.9 Acute kidney failure, unspecified; Z87.442 Personal history of urinary calculi; F41.9 Anxiety disorder, unspecified; N18.3 Chronic kidney disease, stage 3 (moderate); D50.0 Iron deficiency anemia secondary to blood loss (chronic); J44.9 Chronic obstructive pulmonary disease, unspecified
CPT/HCPCS: 36415; 36416; 74176; 74420; 80048; 81003; 81015; 82043; 82365; 82553; 82570; 82607; 82728; 83036; 83540; 83550; 83735; 84300; 84484; 85007; 85025; 85027; 87086; 88300; 93005; 93010; 96361; 96374; C1758; C1769; J0131; J0696; J1100; J1956; J2001; J2405; J2704; J3010; J7050; Q0162; Q9961

== ENCOUNTER 2017-07-08 08:05 | Outpatient (CLI) | payer MEDICARE ==
--- NOTE | 2017-07-08 10:20 | RAD ---
KUB: HISTORY: Ureteral calculus. COMPARISON: 02/20/2017 FINDINGS: The bowel gas pattern is nonobstructed. There is a moderate amount of stool present. Calcifications in the renal pelvis regions of both kidneys appear to be largely related to vascular calcifications. A right ureteral stent has been placed. There was a large calculus seen within the right renal pel vis, that is no longer definitely visualized on this study. IMPRESSION: Placement of right ureteral stent. I do not definitely see the distal right ureteral calculus noted on the prior study. POS: SANDRA
== END 2017-07-08 08:06 | disposition home or self-care (01) ==
LOC: RAD 08:05
PROVIDERS: ATTEND Urology
DX: N20.1 Calculus of ureter (principal); Z96.0 Presence of urogenital implants
CPT/HCPCS: 74018

== ENCOUNTER 2017-07-28 18:24 | Emergency (ER) | payer MEDICARE ==
[2017-07-28 19:42] LABS: Bilirubin Negative (Negative); Blood, Urine Negative (Negative); Clarity CLEAR (Clear); Glucose, Urine (Dipstick) Negative (Negative); Leukocyte Moderate (Negative); Nitrite Negative (Negative); Protein, Urine (Dipstick) Trace mg/dL (Neg-Trace); Urobilinogen 0.2 mg/dL (0.2-1.0); pH, Urine 5.5 (5.0-9.0)
[2017-07-28 19:47] LABS: Bacteria/HPF None Seen HPF (None Seen); Hyaline Casts/LPF 7-10 HYALINE CAST LPF (0-3 Hyaline); Pathc Cast-AUWi Flag 1.59 (0-2.49); RBC/HPF 0-3 HPF (0-3); Squamous Epithelial 0-3 HPF (0-3)
--- NOTE | 2017-07-28 20:02 | CT ---
CT BRAIN NONCONTRAST: 07/28/17 HISTORY: 71-year-old female status post syncope. FINDINGS: There is no midline shift or any other mass effect. There is no evidence of acute intracranial hemor rhage, large cortical infarct, obstructive hydrocephalus, or extraaxial fluid collection. The calvar ium is intact. There is diffuse parenchymal volume loss. There are low attenuation areas in the whi te matter. These are nonspecific, but in a patient of this age, they are probably chronic ischemic w shonda matter changes due to microvascular atherosclerosis. There is severe partial opacification of th e nasal cavity, but not the nasopharynx. There is mucosal thickening throughout the bilateral ethmoid air cells, left worse than right, contiguous with severe partial opacification in the left frontal s inus. There is mild to moderate mucosal thickening of the sphenoid sinus. Bilateral tympanomastoid ca vities are grossly clear. IMPRESSION: 1) No acute intracranial findings. 2) Involutional changes and chronic ischemic white matter changes. 3) Somewhat severe mucosal thickening throughout the nasal cavity, bilateral ethmoid sinuses and left frontal sinus. jn [] POS: SANDRA
--- NOTE | 2017-07-28 20:03 | CT ---
CT CERVICAL SPINE NONCONTRAST: 07/28/17 HISTORY: 71-year-old female status post acute cervical trauma from fall. FINDINGS: There are no jumped or perched facets. There is no evidence of acute fracture. The vertebral body h eights are maintained. There is no prevertebral soft tissue swelling. There are degenerative disc c hanges and facet osteoarthrosis. IMPRESSION: 1) Cervical spondylosis. 2) No evidence of acute fracture or acute traumatic subluxation. charles [] POS: SANDRA
[2017-07-28 20:13] LABS: #Basophils 0.1 thou/uL (0.0-0.2); #Eosinphils 0.1 thou/uL (0.0-0.7); #Monocytes 0.7 thou/uL (0.11-0.59); #Neutrophils 11.2 thou/uL (1.40-6.50); %Basophils 0.5 % (0.0-1.0); %Eosinophils 0.7 % (0.0-10.0); %Monocytes 5.5 % (0.0-10.0); %Neutrophils 85.3 % (42.0-75.0); Mean Corpuscular HGB CONC 31.3 g/dL (32.0-36.0); Mean Corpuscular Hemoglobin 27.3 pg (27.0-31.0); Mean Corpuscular Volume 87.2 fL (78.0-98.0); Mean Platelet Volume 6.9 fL (7.4-10.4); Platelet Count 288 thou/uL (130-400); RBC Distribution Width 15.9 % (11.5-14.5); Red Blood Cell (RBC) Count 3.68 mill/uL (4.20-5.40); White Blood Cell (WBC) Count 13.1 thou/uL (4.8-10.8)
[2017-07-28 21:04] LABS: CKMB 3.5 ng/mL (0-6.6); Troponin I Less than 0.010 ng/mL (< 0.028)
[2017-07-28 21:07] LABS: ALT (SGPT) 15 U/L (8-55); AST (SGOT) 19 U/L (5-34); Albumin 4.5 g/dL (3.4-4.8); Alkaline Phosphatase 94 U/L (40-150); Anion Gap 17 mmol/L (10-20); BUN (Urea Nitrogen) 47 mg/dL (9.8-20.1); Bilirubin, Total 0.2 mg/dL (0.2-1.2); Calc. Creatinine Clearance 0 mL/min (70-130); Calcium 10.3 mg/dL (7.8-10.44); Carbon Dioxide 21 mmol/L (23-31); Chloride 104 mmol/L (98-107); Estimated GFR-MDRD 35; Globulin 4.5 g/dL (2.4-3.5); Glucose 115 mg/dL (83-110); Potassium 4.4 mmol/L (3.5-5.1); Sodium 138 mmol/L (136-145)
[2017-07-28 22:22] LABS: CK (CPK) 126 U/L (29-168)
== END 2017-07-28 22:55 | disposition left against medical advice (07) ==
LOC: ERS 18:24
DX: E86.0 Dehydration (principal); E11.9 Type 2 diabetes mellitus without complications; E78.5 Hyperlipidemia, unspecified; D64.9 Anemia, unspecified; J43.9 Emphysema, unspecified
CPT/HCPCS: 36415; 70450; 72125; 80053; 81003; 81015; 82550; 82553; 84484; 85025; 93005

== ENCOUNTER 2018-10-22 11:17 | Emergency (ER) | payer MEDICARE ==
[2018-10-22 12:34] LABS: #Basophils 0.1 thou/uL (0.0-0.2); #Eosinphils 0.1 thou/uL (0.0-0.7); #Lymphocytes 1.3 thou/uL (1.20-3.40); #Monocytes 0.6 thou/uL (0.11-0.59); #Neutrophils 6.5 thou/uL (1.40-6.50); %Basophils 0.7 % (0.0-1.0); %Eosinophils 1.2 % (0.0-10.0); %Lymphocytes 15.6 % (21.0-51.0); %Monocytes 6.7 % (0.0-10.0); %Neutrophils 75.8 % (42.0-75.0); Hemoglobin 14.4 g/dL (12.0-16.0); Mean Corpuscular HGB CONC 32.4 g/dL (32.0-36.0); Mean Corpuscular Hemoglobin 30.9 pg (27.0-31.0); Mean Corpuscular Volume 95.5 fL (78.0-98.0); Mean Platelet Volume 7.7 fL (7.4-10.4); Platelet Count 293 thou/uL (130-400); RBC Distribution Width 11.7 % (11.5-14.5); Red Blood Cell (RBC) Count 4.64 mill/uL (4.20-5.40); White Blood Cell (WBC) Count 8.5 thou/uL (4.8-10.8)
[2018-10-22 12:57] LABS: ALT (SGPT) 15 U/L (8-55); AST (SGOT) 16 U/L (5-34); Albumin 4.2 g/dL (3.4-4.8); Alkaline Phosphatase 122 U/L (40-150); Anion Gap 13 mmol/L (10-20); BUN (Urea Nitrogen) 25 mg/dL (9.8-20.1); Bilirubin, Total 0.2 mg/dL (0.2-1.2); CK (CPK) 26 U/L (29-168); Calc. Creatinine Clearance 0 mL/min (70-130); Carbon Dioxide 28 mmol/L (23-31); Chloride 104 mmol/L (98-107); Estimated GFR-MDRD 58; Globulin 4.1 g/dL (2.4-3.5); Glucose 122 mg/dL (83-110); Magnesium 1.9 mg/dL (1.6-2.6); Protein, Total 8.3 g/dL (6.0-8.3); Sodium 141 mmol/L (136-145)
--- NOTE | 2018-10-22 13:03 | CT ---
CT HEAD WITHOUT CONTRAST: Date: 10/22/18 INDICATION: Trauma. COMPARISON: 07/28/17. FINDINGS: Mild cortical atrophy. Moderate chronic ischemic white matter change. No evidence of intracranial infarct, mass, or hemorrhage. No interval change apparent. Opacification of the ethmoid and frontal sinuses are again noted with air fluid level in the maxillar y sinuses. Paranasal sinus disease was present on the prior exam as well. IMPRESSION: 1. No acute intracranial process. Chronic ischemic white matter changes appear stable. 2. Pansinusitis again noted. POS: OFF
--- NOTE | 2018-10-22 13:04 | RAD ---
AP CHEST: Date: 10/22/18 HISTORY: Fall. COMPARISON: 02/19/17. FINDINGS: Lungs appear clear. Increased interstitial markings appear stable. Heart size normal. IMPRESSION: Chronic lung changes appear stable. No acute interval change. POS: OFF
--- NOTE | 2018-10-22 13:05 | RAD ---
RIGHT HAND 3 VIEWS: Date: 10/22/18 HISTORY: Trauma. FINDINGS: There is an obliquely oriented fracture mid shaft fourth metacarpal with mild displacement. No other fracture identified. IMPRESSION: Fracture fourth metacarpal. POS: OFF
--- NOTE | 2018-10-22 13:35 | CT ---
CT FACIAL BONES: Date: 10/22/18 INDICATION: Fall with injury to face. FINDINGS: Nasal bones appear intact. Orbits appear intact. Lamina papyracea appear intact. Diffuse mucosal opacification of frontal, ethmoid, and maxillary sinuses are noted. Similar findings were noted on prior exam of 07/28/17. Zygoma appears intact. Maxilla appears intact. Mandible appears intact. IMPRESSION: 1. No evidence of facial bone fracture. 2. Pansinusitis, which appears to be chronic. POS: OFF
== END 2018-10-22 14:23 | disposition home or self-care (01) ==
LOC: ERS 11:17
DX: S62.324A Displaced fracture of shaft of fourth metacarpal bone, right hand, initial encounter for closed fracture (principal); E11.9 Type 2 diabetes mellitus without complications; E78.5 Hyperlipidemia, unspecified; D64.9 Anemia, unspecified; J43.9 Emphysema, unspecified; W01.0XXA Fall on same level from slipping, tripping and stumbling without subsequent striking against object, initial encounter
CPT/HCPCS: 70450; 70486; 71045; 80053; 82550; 83735; 84443; 84484; 85025; 93005

== ENCOUNTER 2019-01-26 08:01 | Outpatient (CLI) | payer MEDICARE ==
--- NOTE | 2019-01-26 08:50 | RAD ---
CHEST 2 VIEWS: Date: 01/26/19 HISTORY: COPD, difficulty breathing. COMPARISON: 05/18/18. FINDINGS: There are diffuse increased linear and interstitial parenchymal changes noted bilaterally, somewhat m ore prominent in the right lower lobe, although given some differences in technique, this does not ap pear to be significantly changed from the prior study. No confluent pneumonia. No pleural effusion. H eart size is normal. IMPRESSION: Abnormal increased linear and interstitial markings bilaterally, particularly in the right base, but overall stable from prior study. No confluent pneumonia. POS: [facility]
== END 2019-01-26 08:02 | disposition home or self-care (01) ==
LOC: BICRAD 08:01
PROVIDERS: ATTEND Internal Medicine
DX: J44.1 Chronic obstructive pulmonary disease with (acute) exacerbation (principal); J98.4 Other disorders of lung
CPT/HCPCS: 36415; 71046; 80053; 80061; 82607; 82746; 83036; 85025

== ENCOUNTER 2020-02-26 11:00 | Outpatient (CLI) | payer MEDICARE ==
--- NOTE | 2020-02-26 11:50 | RAD ---
PA AND LATERAL VIEWS: HISTORY: COPD exacerbation. COMPARISON: 01/26/2019. FINDINGS: The heart size is normal. The lungs are expanded with stable chronic changes. No lobar consolidatio n, pneumothoraces, or pleural effusions are seen. There are degenerative changes in the spine. IMPRESSION: Stable exam. No acute process. POS: [facility]
== END 2020-02-26 11:01 | disposition home or self-care (01) ==
LOC: BICRAD 11:00
PROVIDERS: ATTEND Internal Medicine
DX: J44.1 Chronic obstructive pulmonary disease with (acute) exacerbation (principal)
CPT/HCPCS: 71046

== ENCOUNTER 2022-04-20 09:04 | Inpatient (IN) | payer MEDICARE ==
[~2022-04-20 09:04] MED LIST: Vancomycin 1 GM in Premix Bag 1 BAG IVPB SCH
[2022-04-20 10:16] LABS: #Eosinphils 0.1 thou/uL (0.0-0.7); #Lymphocytes 0.5 thou/uL (1.20-3.40); #Monocytes 0.7 thou/uL (0.11-0.59); #Neutrophils 12.8 thou/uL (1.40-6.50); %Basophils 0.1 % (0.0-1.0); %Eosinophils 0.6 % (0.0-10.0); %Lymphocytes 3.8 % (21.0-51.0); %Monocytes 4.9 % (0.0-10.0); %Neutrophils 90.6 % (42.0-75.0); Hemoglobin 12.9 g/dL (12.0-16.0); Mean Corpuscular HGB CONC 31.7 g/dL (32.0-36.0); Mean Corpuscular Hemoglobin 31.4 pg (27.0-31.0); Mean Corpuscular Volume 99.2 fl (78.0-98.0); Mean Platelet Volume 8.6 fL (7.4-10.4); Platelet Count 213 10x3/uL (130-400); RBC Distribution Width 11.4 % (11.5-14.5); Red Blood Cell (RBC) Count 4.11 mill/uL (4.20-5.40); White Blood Cell (WBC) Count 14.1 10x3/uL (4.8-10.8)
[2022-04-20 10:49] LABS: ALT (SGPT) 15 U/L (8-55); AST (SGOT) 20 U/L (5-34); Albumin 3.8 g/dL (3.4-4.8); Alkaline Phosphatase 99 U/L (40-110); Anion Gap 14 mmol/L (10-20); BUN (Urea Nitrogen) 36 mg/dL (9.8-20.1); Bilirubin, Total 0.4 mg/dL (0.2-1.2); CK (CPK) 58 U/L (29-168); Calc. Creatinine Clearance 0 mL/min (70-130); Calcium 9.6 mg/dL (7.8-10.44); Carbon Dioxide 22 mmol/L (23-31); Chloride 110 mmol/L (98-107); Estimated GFR 58; Globulin 3.3 g/dL (2.4-3.5); Glucose 148 mg/dL (83-110); Lipase 39 U/L (8-78); Potassium 5.4 mmol/L (3.5-5.1); Protein, Total 7.1 g/dL (5.8-8.1); Sodium 141 mmol/L (136-145)
[2022-04-20] MEDS ORDERED: Iopamidol-370 76% 500 ML 1 ML ONE (11:10)
[2022-04-20] MEDS ORDERED: Senokot S 8.6-50 MG TAB PO PRN (11:35)
[2022-04-20] MEDS ORDERED: Acetaminophen 325 MG TAB PO PRN (11:35)
[2022-04-20] MEDS ORDERED: Sodium Chloride 0.9% 1,000 ML IV SCH (11:45)
[2022-04-20] MEDS ORDERED: Ipratropium/Albuterol 3 ML NEB NEB PRN (12:33)
[2022-04-20 15:04] LABS: Anion Gap 15 mmol/L (10-20); BUN (Urea Nitrogen) 30 mg/dL (9.8-20.1); Calc. Creatinine Clearance 0 mL/min (70-130); Calcium 8.9 mg/dL (7.8-10.44); Carbon Dioxide 20 mmol/L (23-31); Chloride 110 mmol/L (98-107); Estimated GFR 65; Glucose 129 mg/dL (83-110); Potassium 4.2 mmol/L (3.5-5.1); Sodium 141 mmol/L (136-145)
[2022-04-20 15:09] LABS: Troponin I Less than 0.010 ng/mL (< 0.028)
[2022-04-20 15:18] VITALS: BMI 15.8
[2022-04-20] MEDS: Nicotine 14 MG PATCH TD SCH (16:55)
[2022-04-20 18:09] LABS: Troponin I Less than 0.010 ng/mL (< 0.028)
[2022-04-20] MEDS: Atorvastatin Calcium 40 MG TAB PO SCH (20:13)
[2022-04-20] MEDS: Famotidine 20 MG TAB PO SCH (20:13)
[2022-04-20 22:13] LABS: Bacteria/HPF None Seen HPF (None Seen); Bilirubin Negative (Negative); Blood, Urine Negative (Negative); Clarity Clear (Clear); Glucose, Urine (Dipstick) Normal (Negative); Ketone, Urine Negative (Negative); Leukocyte 250 Leu/uL (Negative); Nitrite Negative (Negative); Protein, Urine (Dipstick) Negative (Neg-Trace); RBC/HPF 0-3 HPF (0-3); Specific Gravity, Urine 1.035 (1.002-1.036); Squamous Epithelial 0-3 HPF (0-3); Urobilinogen Normal mg/dL (Less than 2); WBC/HPF 21-50 HPF (0-3)
[2022-04-20] MEDS: Cefepime 1 GM in Sodium Chloride 0.9% 100 ML IVPB SCH (23:47)
[2022-04-21] MEDS ORDERED: Vancomycin 1 GM in Premix Bag 1 BAG IVPB SCH (01:00)
[2022-04-21] MEDS ORDERED: Aspirin 325 mg Enteric Coated Tablet PO SCH (09:00)
[2022-04-21] MEDS ORDERED: Cefepime 1 GM in Sodium Chloride 0.9% 100 ML IVPB SCH (09:00)
[2022-04-21] MEDS: Famotidine 20 MG TAB PO SCH ×2 (09:42→20:27)
[2022-04-21] MEDS: Cefepime 1 GM in Sodium Chloride 0.9% 100 ML IVPB SCH (11:56)
[2022-04-21 12:39] LABS: Legionella Urinary Ag Negative (Negative); Strep pneumo Urine Ag NEGATIVE (NEGATIVE)
[2022-04-21] MEDS: Nicotine 14 MG PATCH TD SCH (14:32)
[2022-04-21] MEDS ORDERED: Azithromycin 250 MG TAB PO SCH (19:00)
[2022-04-21] MEDS: cefTRIAXone\\ROCEPHIN 2 GM in Sodium Chloride 0.9% 100 ML IVPB SCH (20:26)
[2022-04-21] MEDS: Docusate 100 MG CAP PO SCH (20:27)
[2022-04-21] MEDS: Atorvastatin Calcium 40 MG TAB PO SCH (20:30)
[2022-04-22] MEDS: Aspirin 81 mg Enteric Coated Tablet PO SCH (08:10)
[2022-04-22] MEDS: Azithromycin 250 MG TAB PO SCH (08:11)
[2022-04-22] MEDS: Docusate 100 MG CAP PO SCH ×2 (08:12→21:08)
[2022-04-22] MEDS: Loratadine 10 MG TAB PO SCH (08:13)
[2022-04-22] MEDS: Famotidine 20 MG TAB PO SCH ×2 (08:13→21:07)
[2022-04-22] MEDS ORDERED: Aspirin 81 mg Enteric Coated Tablet PO SCH (09:00)
[2022-04-22] MEDS: traMADol HCl 50 MG TAB PO PRN ×3 (10:12→23:52)
[2022-04-22] MEDS: Nicotine 14 MG PATCH TD SCH (14:11)
[2022-04-22] MEDS: Atorvastatin Calcium 40 MG TAB PO SCH (21:07)
[2022-04-22] MEDS: cefTRIAXone\\ROCEPHIN 2 GM in Sodium Chloride 0.9% 100 ML IVPB SCH (21:07)
[2022-04-23] MEDS: Azithromycin 250 MG TAB PO SCH (08:16)
[2022-04-23] MEDS: Loratadine 10 MG TAB PO SCH (08:16)
[2022-04-23] MEDS: Docusate 100 MG CAP PO SCH ×2 (08:16→21:20)
[2022-04-23] MEDS: Aspirin 81 mg Enteric Coated Tablet PO SCH (08:16)
[2022-04-23] MEDS: Famotidine 20 MG TAB PO SCH ×2 (08:16→21:20)
[2022-04-23] MEDS: traMADol HCl 50 MG TAB PO PRN ×2 (10:40→21:31)
[2022-04-23] MEDS: Nicotine 14 MG PATCH TD SCH (12:44)
[2022-04-23] MEDS: cefTRIAXone\\ROCEPHIN 2 GM in Sodium Chloride 0.9% 100 ML IVPB SCH (21:19)
[2022-04-23] MEDS: Atorvastatin Calcium 40 MG TAB PO SCH (21:20)
[2022-04-24] MEDS: Loratadine 10 MG TAB PO SCH (08:08)
[2022-04-24] MEDS: Aspirin 81 mg Enteric Coated Tablet PO SCH (08:08)
[2022-04-24] MEDS: Azithromycin 250 MG TAB PO SCH (08:09)
[2022-04-24] MEDS: Docusate 100 MG CAP PO SCH (08:09)
[2022-04-24] MEDS: Famotidine 20 MG TAB PO SCH (08:09)
[2022-04-24 16:54] VITALS: BP 119/69; TEMP 98.5
[2022-04-24] MEDS: Nicotine 14 MG PATCH TD SCH ×2 (17:15→17:17)
== END 2022-04-24 18:45 | DRG 562 ==
LOC: ERS 09:04 → 2SW 13:27 → OBSVTOIN 04-21 14:47 → T4-B 04-24 11:02
PROVIDERS: ADMIT Family Medicine; ATTEND Family Medicine
DX: S82.145A Nondisplaced bicondylar fracture of left tibia, initial encounter for closed fracture (principal); J18.9 Pneumonia, unspecified organism; R64 Cachexia; Z68.1 Body mass index [BMI] 19.9 or less, adult; J44.0 Chronic obstructive pulmonary disease with (acute) lower respiratory infection; R55 Syncope and collapse; Z20.822 Contact with and (suspected) exposure to COVID-19; E78.5 Hyperlipidemia, unspecified; D63.1 Anemia in chronic kidney disease; N18.30 Chronic kidney disease, stage 3 unspecified; E87.5 Hyperkalemia; I65.23 Occlusion and stenosis of bilateral carotid arteries; I65.01 Occlusion and stenosis of right vertebral artery; M19.011 Primary osteoarthritis, right shoulder; W18.39XA Other fall on same level, initial encounter; Z87.442 Personal history of urinary calculi; Z90.49 Acquired absence of other specified parts of digestive tract; Z90.710 Acquired absence of both cervix and uterus; Z88.5 Allergy status to narcotic agent; Z79.82 Long term (current) use of aspirin; Z79.899 Other long term (current) drug therapy
CPT/HCPCS: 36415; 36416; 70496; 70498; 70551; 71045; 71250; 80053; 81001; 82550; 83605; 83690; 84484; 85025; 87040; 87081; 87449; 87899; 93005; 93306; 93880; 96360; 96361; 96365; 96366; 96367; G0378; J0692; J0696; J3370-JW; J3490; J7050; Q9967

== ENCOUNTER 2022-05-28 04:00 | Emergency (ER) | payer MEDICARE ==
[2022-05-28 04:49] LABS: #Lymphocytes 0.6 thou/uL (1.20-3.40); #Monocytes 0.4 thou/uL (0.11-0.59); %Basophils 0.7 % (0.0-1.0); %Eosinophils 0.5 % (0.0-10.0); %Lymphocytes 10.2 % (21.0-51.0); %Monocytes 7.1 % (0.0-10.0); %Neutrophils 81.5 % (42.0-75.0); Hemoglobin 11.9 g/dL (12.0-16.0); Mean Corpuscular HGB CONC 32.1 g/dL (32.0-36.0); Mean Corpuscular Hemoglobin 31.6 pg (27.0-31.0); Mean Corpuscular Volume 98.3 fl (78.0-98.0); Mean Platelet Volume 8.3 fL (7.4-10.4); Platelet Count 136 10x3/uL (130-400); RBC Distribution Width 12.1 % (11.5-14.5); Red Blood Cell (RBC) Count 3.77 mill/uL (4.20-5.40); White Blood Cell (WBC) Count 6.1 10x3/uL (4.8-10.8)
[2022-05-28 04:55] LABS: INR-International Normal Ratio 0.9; Prothrombin Time 12.9 sec (12.0-14.7)
[2022-05-28 04:56] LABS: PTT 30.4 sec (22.9-36.1)
[2022-05-28 05:08] LABS: ALT (SGPT) 30 U/L (8-55); AST (SGOT) 43 U/L (5-34); Alkaline Phosphatase 107 U/L (40-110); Anion Gap 16 mmol/L (10-20); BUN (Urea Nitrogen) 22 mg/dL (9.8-20.1); Bilirubin, Total 0.3 mg/dL (0.2-1.2); Calc. Creatinine Clearance 0 mL/min (70-130); Calcium 9.7 mg/dL (7.8-10.44); Carbon Dioxide 22 mmol/L (23-31); Chloride 105 mmol/L (98-107); Estimated GFR 61; Globulin 3.7 g/dL (2.4-3.5); Glucose 123 mg/dL (83-110); Potassium 4.2 mmol/L (3.5-5.1); Protein, Total 7.7 g/dL (5.8-8.1); Sodium 139 mmol/L (136-145)
== END 2022-05-28 06:31 | disposition home or self-care (01) ==
LOC: ERS 04:00
DX: S09.90XA Unspecified injury of head, initial encounter (principal); E11.9 Type 2 diabetes mellitus without complications; E78.5 Hyperlipidemia, unspecified; W19.XXXA Unspecified fall, initial encounter; U07.1 COVID-19
CPT/HCPCS: 70450; 71045; 72125; 73502; 80053; 84484; 85025; 85610; 85730; 93005; 99285; U0003; U0005

== ENCOUNTER 2022-12-24 21:47 | Emergency (ER) | payer MEDICARE ==
[2022-12-24 22:35] LABS: #Basophils 0.1 thou/uL (0.0-0.2); #Eosinphils 0.1 thou/uL (0.0-0.7); #Monocytes 0.8 thou/uL (0.11-0.59); #Neutrophils 7.9 thou/uL (1.40-6.50); %Basophils 0.5 % (0.0-1.0); %Eosinophils 0.7 % (0.0-10.0); %Lymphocytes 10.5 % (21.0-51.0); %Monocytes 8.4 % (0.0-10.0); %Neutrophils 79.5 % (42.0-75.0); Hematocrit 40.3 % (36.0-47.0); Hemoglobin 13.1 g/dL (12.0-16.0); Mean Corpuscular HGB CONC 32.5 g/dL (32.0-36.0); Mean Corpuscular Hemoglobin 30.5 pg (27.0-31.0); Mean Corpuscular Volume 93.9 fl (78.0-98.0); Mean Platelet Volume 10.4 fL (7.4-10.4); Platelet Count 188 10x3/uL (130-400); RBC Distribution Width 12.9 % (11.5-14.5); Red Blood Cell (RBC) Count 4.29 mill/uL (4.20-5.40); White Blood Cell (WBC) Count 9.9 10x3/uL (4.8-10.8)
[2022-12-24 22:57] LABS: Albumin 4.2 g/dL (3.4-4.8); Anion Gap 17 mmol/L (10-20); BUN (Urea Nitrogen) 22 mg/dL (9.8-20.1); Bilirubin, Total 0.6 mg/dL (0.2-1.2); Calc. Creatinine Clearance 0 mL/min (70-130); Carbon Dioxide 23 mmol/L (23-31); Chloride 106 mmol/L (98-107); Estimated GFR 52; Glucose 165 mg/dL (83-110); Protein, Total 7.6 g/dL (5.8-8.1); Sodium 142 mmol/L (136-145)
[2022-12-24 22:58] LABS: ALT (SGPT) 8 U/L (8-55); AST (SGOT) 11 U/L (5-34); Alkaline Phosphatase 99 U/L (40-110); Globulin 3.4 g/dL (2.4-3.5)
== END 2022-12-25 00:40 | disposition home or self-care (01) ==
LOC: ERS 21:47
DX: S06.0XAA Concussion with loss of consciousness status unknown, initial encounter (principal); E11.9 Type 2 diabetes mellitus without complications; W18.30XA Fall on same level, unspecified, initial encounter; Y92.129 Unspecified place in nursing home as the place of occurrence of the external cause
CPT/HCPCS: 36415; 70450; 72125; 72170; 80053; 85025

== ENCOUNTER 2023-08-14 06:11 | Emergency (ER) | payer MEDICARE ==
[2023-08-14 08:05] LABS: ALT (SGPT) 11 U/L (8-55); AST (SGOT) 18 U/L (5-34); Albumin 3.8 g/dL (3.4-4.8); Alkaline Phosphatase 121 U/L (40-110); Anion Gap 16 mmol/L (10-20); BUN (Urea Nitrogen) 24 mg/dL (9.8-20.1); Bilirubin, Total 0.5 mg/dL (0.2-1.2); Calc. Creatinine Clearance 0 mL/min (70-130); Calcium 9.7 mg/dL (7.8-10.44); Carbon Dioxide 24 mmol/L (23-31); Chloride 104 mmol/L (98-107); Estimated GFR 53; Glucose 162 mg/dL (83-110); Potassium 4.2 mmol/L (3.5-5.1); Protein, Total 7.8 g/dL (5.8-8.1); Sodium 140 mmol/L (136-145)
[2023-08-14 08:22] LABS: #Basophils 0.05 10x3/uL (0.0-0.2); #Eosinphils Less than 0.03 10x3/uL (0.0-0.7); %Eosinophils 0.4 % (0.0-10.0); %Lymphocytes 11.1 % (21.0-51.0); %Monocytes 4.9 % (0.0-10.0); %Neutrophils 82.2 % (42.0-75.0); Hematocrit 65.3 % (36.0-47.0); Hemoglobin 20.5 g/dL (12.0-16.0); Mean Corpuscular HGB CONC 31.4 g/dL (32.0-36.0); Mean Corpuscular Hemoglobin 29.9 pg (27.0-31.0); Mean Corpuscular Volume 95.3 fL (78.0-98.0); Mean Platelet Volume 10.5 fL (7.4-10.4); Platelet Count 94 10x3/uL (130-400); RBC Distribution Width 12.6 % (11.5-14.5); Red Blood Cell (RBC) Count 6.85 mill/uL (4.20-5.40)
[2023-08-14 08:50] LABS: Troponin I Less than 0.010 ng/mL (< 0.028)
[2023-08-14 10:12] LABS: Plasma Cells 0 % (0-0); Platelet Adequacy Comment Appears Decreased
[2023-08-14 12:15] LABS: Bacteria/HPF 2+ HPF (None Seen); Bilirubin Negative (Negative); Blood, Urine Trace (Negative); CAUTI Indications for Culture Dysuria,urgency,freq; Clarity Turbid (Clear); Glucose, Urine (Dipstick) Normal (Negative); Ketone, Urine Negative (Negative); Leukocyte 500 Leu/uL (Negative); Nitrite 2+ (Negative); Protein, Urine (Dipstick) 10 mg/dL (Neg-Trace); Squamous Epithelial 0-3 HPF (0-3); Urobilinogen Normal mg/dL (Less than 2); WBC/HPF Greater than 50 HPF (0-3); pH, Urine 6.5 (5.0-9.0)
[2023-08-14 12:18] LABS: Urine Culture Reflex Yes Yes
[2023-08-14] MEDS ORDERED: Sodium Chloride 0.9% 100 ML ONE (13:05)
[2023-08-14] MEDS ORDERED: cefTRIAXone (ROCEPHIN) 2 GM VIAL ONE (13:05)
[2023-08-14 17:23] LABS: Hematocrit 43.3 % (36.0-47.0); Hemoglobin 13.6 g/dL (12.0-16.0); Platelet Count 227 10x3/uL (130-400)
== END 2023-08-14 21:33 ==
LOC: ERS 06:11
DX: S22.41XA Multiple fractures of ribs, right side, initial encounter for closed fracture (principal); N39.0 Urinary tract infection, site not specified; E11.9 Type 2 diabetes mellitus without complications; W17.89XA Other fall from one level to another, initial encounter
CPT/HCPCS: 70450; 71101; 72125; 80053; 81001; 82550; 84484; 85014; 85018; 85025; 85049; 87077; 87086; 87186; 93005; 96374; 99285; J0696; J3490; 36415